=== PATIENT | female | born 1965 | race Caucasian/White ===

== ENCOUNTER → 2018-11-09 08:53 | Outpatient (CLI) | payer OTHER, SELFPAY ==
[2018-11-09 09:47] LABS: Alanine Aminotransferase 15 IU/L (9-52); Albumin Globulin Ratio 1.4 (1.0-2.8); Alkaline Phosphatase 91 U/L (38-126); Aspartate Aminotransferase 12 IU/L (14-36); Blood Urea Nitrogen 12 mg/dL (7-17); Calcium 8.7 mg/dL (8.4-10.2); Carbon Dioxide 25 mmol/L (22-32); Chloride 101 mmol/L (98-107); Cholesterol 120 mg/dL (140-199); Estimated Glomerular Filt Rate > 60.0 mL/min (>60); Globulin 2.8 g/dL (1.7-4.1); Glucose 126 mg/dL (70-100); HDL Cholesterol 45 mg/dL (40-60); HEMOLYSIS < 15 (0-50); LDL Cholesterol Calculated 56 mg/dL (<100); Potassium 3.9 mmol/L (3.4-5.1); Sodium 136 mmol/L (137-145); Total Protein 6.8 g/dL (6.3-8.2); Triglycerides 93 mg/dL (35-150)
[2018-11-09 10:31] LABS: Add Manual Diff / Slide Review NO; Basophils Absolute Auto 0 /uL (0-100); Basophils Percent Auto 0.3 % (0-2); Eosinophils Absolute Auto 100 /uL (0-450); Eosinophils Percent Auto 0.7 % (2-4); Hematocrit 33.4 % (36-46); Hemoglobin 10.7 g/dL (12.0-16.0); Lymphocytes Absolute Auto 2500 /uL (1100-4500); Lymphocytes Percent Auto 28.5 % (25-40); Mean Corpuscular HGB Conc 31.9 % (30-36); Mean Corpuscular Hemoglobin 21.7 PG (26-34); Mean Corpuscular Volume 68.1 fL (80-100); Monocytes Absolute Auto 600 /uL (0-900); Monocytes Percent Auto 7.4 % (3-14); Neutrophils Absolute Auto 5500 /uL (1500-7000); Neutrophils Percent Auto 63.1 % (50-75); Platelet Count 250 X10^3/uL (150-400); Red Blood Cell Count 4.91 X10^6/uL (4.0-5.2); Red Cell Distribution Width 17.9 % (11.6-14.8); White Blood Cell Count 8.7 X10^3/uL (4.5-11.0)
[2018-11-09 11:25] LABS: Thyroid Stimulating Hormone 1.28 uIU/mL (0.47-4.68)
[2018-11-09 15:24] LABS: Microcytosis 2+; Ovalocytes 1+
== END ==
PROVIDERS: Family Provider Family Medicine; PCP Family Medicine; Visit Provider Family Medicine
DX: I10 Essential (primary) hypertension (principal); E11.9 Type 2 diabetes mellitus without complications
CPT/HCPCS: 36415; 80053; 80061; 83036; 84443; 85025

== ENCOUNTER → 2019-02-22 14:30 | Outpatient (CLI) | payer OTHER, SELFPAY | PROVIDERS: Family Provider Family Medicine; PCP Family Medicine; Visit Provider Physician Assistant | DX: N30.01 Acute cystitis with hematuria (principal) | CPT/HCPCS: 87077; 87086; 87186 ==

== ENCOUNTER → 2019-03-15 08:12 | Outpatient (CLI) | payer OTHER, SELFPAY | PROVIDERS: Family Provider Family Medicine; PCP Family Medicine; Visit Provider Family Medicine | DX: E11.9 Type 2 diabetes mellitus without complications (principal); R73.09 Other abnormal glucose | CPT/HCPCS: 83036 ==

== ENCOUNTER → 2020-02-23 09:40 | Outpatient (CLI) | payer OTHER, SELFPAY ==
[2020-02-23 10:20] LABS: Add Manual Diff / Slide Review NO; Basophils Absolute Auto 0 /uL (0-100); Basophils Percent Auto 0.6 % (0-2); Eosinophils Absolute Auto 100 /uL (0-450); Hematocrit 33.1 % (36-46); Hemoglobin 10.5 g/dL (12.0-16.0); Lymphocytes Absolute Auto 2900 /uL (1100-4500); Lymphocytes Percent Auto 34.3 % (25-40); Mean Corpuscular HGB Conc 31.7 % (30-36); Mean Corpuscular Hemoglobin 21.2 PG (26-34); Monocytes Absolute Auto 500 /uL (0-900); Monocytes Percent Auto 5.5 % (3-14); Neutrophils Absolute Auto 4900 /uL (1500-7000); Neutrophils Percent Auto 58.6 % (50-75); Platelet Count 251 X10^3/uL (150-400); Red Blood Cell Count 4.93 X10^6/uL (4.0-5.2); Red Cell Distribution Width 18.8 % (11.6-14.8); White Blood Cell Count 8.3 X10^3/uL (4.5-11.0)
[2020-02-23 10:29] LABS: Hemoglobin A1C% w Est Avg Glu 7.8 % (4.0-6.0)
[2020-02-23 10:38] LABS: Anisocytosis 2+; Poikilocytosis 1+
[2020-02-23 10:40] LABS: HEMOLYSIS < 15 (0-50); Iron 57 ug/dL (37-170)
[2020-02-23 10:45] LABS: Alanine Aminotransferase 16 IU/L (<35); Albumin Globulin Ratio 1.3 (1.0-2.8); Alkaline Phosphatase 112 U/L (38-126); Aspartate Aminotransferase 18 IU/L (14-36); BUN Creatinine Ratio 23.3 (6-22); Bilirubin Total 1.1 mg/dL (0.2-1.3); Blood Urea Nitrogen 14 mg/dL (7-17); Calcium 9.4 mg/dL (8.4-10.2); Carbon Dioxide 29 mmol/L (22-32); Chloride 103 mmol/L (98-107); Cholesterol 130 mg/dL (140-199); Estimated Glomerular Filt Rate > 60.0 mL/min (>60); Glucose 140 mg/dL (70-100); HDL Cholesterol 54 mg/dL (40-60); HEMOLYSIS < 15 (0-50); LDL Cholesterol Calculated 56 mg/dL (<100); Potassium 4.3 mmol/L (3.4-5.1); Sodium 137 mmol/L (137-145); Triglycerides 100 mg/dL (35-150)
[2020-02-23 10:51] LABS: Percent Iron Saturation 17 % (15-50); Total Iron Binding Capacity 342 ug/dL (265-497); Transferrin 266 mg/dL (206-381)
[2020-02-23 11:10] LABS: Thyroid Stimulating Hormone 1.18 uIU/mL (0.47-4.68)
[2020-02-23 11:13] LABS: Ferritin 17 ng/mL (11-264)
== END ==
PROVIDERS: Family Provider Family Medicine; PCP Family Medicine; Referring Provider Family Medicine; Visit Provider Family Medicine
DX: E11.9 Type 2 diabetes mellitus without complications (principal); E78.2 Mixed hyperlipidemia; I10 Essential (primary) hypertension
CPT/HCPCS: 36415; 80053; 80061; 82728; 83036; 83540; 83550; 84443; 85025

== ENCOUNTER → 2020-03-06 11:09 | Outpatient (CLI) | payer OTHER, SELFPAY ==
--- NOTE | 2020-03-06 | DI.MG.S_ITS ---
BILATERAL DIGITAL SCREENING MAMMOGRAM 3D/2D WITH CAD: 03/06/2020 CLINICAL: Routine screening. Comparison is made to exams dated: 02/15/2016 mammogram, 01/26/2015 mammogram, and 06/23/2013 mammogram - [facility]. The tissue of both breasts is predominantly fatty. Current study was also evaluated with a Computer Aided Detection (CAD) system. No significant masses, calcifications, or other findings are seen in either breast. There has been no significant interval change. IMPRESSION: NEGATIVE There is no mammographic evidence of malignancy. A 1 year screening mammogram is recommended. This exam was interpreted at Station ID: [id number]. NOTE: For mammograms, a report in lay terms will be sent to the patient. Approximately 15% of breast malignancies will not be visualized mammographically. In the management of a palpable breast mass, a negative mammogram must not discourage biopsy of a clinically suspicious lesion. Electronically Signed By: Shane almanza/sen:03/08/2020 08:10:00 letter sent: Normal Exam ACR BI-RADS Category 1: Negative [id number]
== END ==
PROVIDERS: Family Provider Family Medicine; PCP Family Medicine; Referring Provider Family Medicine; Visit Provider Family Medicine
DX: Z12.31 Encounter for screening mammogram for malignant neoplasm of breast (principal)
CPT/HCPCS: 77063; 77067

== ENCOUNTER → 2020-03-22 08:56 | Outpatient (CLI) | payer OTHER, SELFPAY ==
[2020-03-24 06:09] LABS: COVID19 Sendout Not Detected (Not Detect)
== END ==
PROVIDERS: Family Provider Family Medicine; PCP Family Medicine; Visit Provider Physician Assistant
DX: Z11.59 Encounter for screening for other viral diseases (principal)
CPT/HCPCS: 87635

== ENCOUNTER 2020-03-25 09:30 | Day surgery (SDC) | payer OTHER, SELFPAY ==
[2020-03-25] VITALS (7 sets, daily range): BP systolic 102–139; BP diastolic 68–91; PULSE 82–106; RESP 12–20; TEMP 36.1–37.2; O2SAT 93–98; BMI 39.6
--- NOTE | 2020-03-25 | PATH_ITS ---
[facility] Accession Number: [id number] . 01 Material submitted: . PART A: colon - POLYP @ 60CM PART B: colon - POLYP 40CM . 01 Clinical history: . SDC . 02 Diagnosis: A. Colon, Polyp At 60 CM, Biopsy: Tubular adenoma. . B. Colon, Polyp At 40 CM, Biopsy: Tubular adenoma. [facility] 03/30/2020 1335 Local . 02 Electronically signed: . Shireen Russell MD, Pathologist NPI- [id number] . 01 Gross description: . A. Specimen A is received in formalin, labeled polyp at 60 and consists of four hernandez fragments of soft tissue, measuring 1.0 x 0.6 x 0.3 cm in aggregate. The specimen is entirely submitted in cassette A1. B. Specimen B is received in formalin, labeled polyp at 40 cm and consists of multiple hernandez fragments of soft tissue, measuring 2.0 x 1.2 x 0.3 cm in aggregate. The specimen is filtered and entirely submitted in cassette B1. ([id number]) . /[facility] 03/26/2020 1707 Local . 02 Pathologist provided ICD-10: D12.6 . 02 CPT . 061408, 061720 Performed at: 01 [facility] [address], [place], [place] [id number] MD Lonnie Sevilla MD Phone: [phone] Performed at: 02 [facility] [address] [place], [place] [id number] MD Shireen Russell MD Phone: [phone]
[2020-03-25] MEDS: LACTATED RINGERS 1,000 ML 200 ML IV (10:05)
--- NOTE | 2020-03-25 10:22 | PM.OP.ENDO ---
Operative Date/Time/Diagnoses Date of procedure: 03/25/20 Time of procedure: 10:22 Pre-op diagnosis: Screening exam. History of polyps. Last exam 6 years ago. Post-op diagnosis: same (Sigmoid and ascending colon diverticulosis. Multiple small polyps.) Procedure & Clinicians Study performed: Colonoscopy with cold biopsies Same procedure as scheduled: Yes Indications: Screening Surgeon: Shawn Ambriz Procedure Notes SCOAP/Timeout: Performed Procedure in detail: The patient was placed in the left lateral decubitus position and underwent IV sedation directed by the surgeon consisting of fentanyl and Versed. Digital exam was performed. The scope was inserted and advanced through the rectum into the sigmoid, descending, transverse, and ascending colon. Patient was noted to have diverticulosis in the sigmoid colon and the ascending colon. A small polyp was identified which was biopsied on the way in. It was removed.(ultimately found to be at about 25 cm in the anal verge). I had to place a stiffener and apply pressure in order to reach the cecum. The cecum was reached identified by the ileocecal valve and the appendiceal opening. The ileocecal valve was briefly cannulated. The terminal ileum was normal in appearance. The scope was gradually brought out. Polyps were found at the cecum, 60 cm from the anal verge, and multiple small lesions were identified and placed in the same container between the anal verge and 25 cm. I suspect some of these may be hyperplastic or lymphoid in nature. The scope ultimately was retroflexed in the rectum. The appearance was normal.. The scope was removed and the patient tolerated the procedure well. Prep was very good. Scope withdrawal time: 7 minutes (14.5 total) Sedation minutes: 37 Findings: diverticulosis and polyp (Multiple. All under a cm. ) Specimen(s): other (Polyps) Complications: none Post-procedure Recommendations: Colonscopy in 5 years Follow up: as needed Disposition: PACU
--- NOTE | 2020-03-25 10:45 | PM.PREOP ---
Pre-operative Note COVID-19 COVID-19 status: Negative Result date/Date tested (Pos, Neg/Pending): 03/22/20 Interval Note History & Physical reviewed/Exam performed by Physician: Yes Changes to H&P: No ASA Class (for procedural sedation): III
[2020-03-25] MEDS: fentaNYL 250 MCG/5 ML INJ IV ×4 (10:52→10:58)
[2020-03-25] MEDS: MIDAZOLAM 5 MG/5 ML VIAL IV ×3 (10:52→11:00)
[2020-03-25] MEDS: LIDOCAINE JELLY 2% 5 ML 1 APPLIC TOP (10:58)
--- NOTE | 2020-03-25 11:25 | PM.OP.ENDO ---
Operative Date/Time/Diagnoses Date of procedure: 03/25/20 Time of procedure: 11:25 Pre-op diagnosis: Positive fit test. This is her 1st colonoscopy Post-op diagnosis: same (Two polyps. Diverticulosis.) Procedure & Clinicians Study performed: Colonoscopy with cold biopsy and cold snare polypectomy Same procedure as scheduled: Yes Indications: Screening. Positive fit test. Surgeon: Shawn Ambriz Procedure Notes SCOAP/Timeout: Perform Procedure in detail: The patient was placed in the left lateral decubitus position and underwent IV sedation directed by the surgeon consisting of fentanyl and Versed. Digital exam was unremarkable except for an increased sphincter tone. Lidocaine jelly was applied to her anus.. The scope was inserted and advanced through the rectum into the sigmoid, descending, transverse, and ascending colon. Patient was noted to have diverticulosis.. The cecum was reached identified by the ileocecal valve and the appendiceal opening. The scope was gradually brought out. Polyps were found at 60 and 40 cm from the anal verge. This 60 cm lesion was snared and removed. The base was biopsied to ensure complete removal. The lesion of 40 cm was repeatedly biopsied and And completely removed. Both polyps were under cm in size. The scope ultimately was retroflexed in the rectum. The appearance was normal. The scope was removed and the patient tolerated the procedure well. The prep was very good. Scope withdrawal time: 10min(17 total) Sedation minutes: 31 Findings: diverticulosis and polyp Specimen(s): other (Polyps) Complications: none Post-procedure Recommendations: Colonscopy in 5 years Follow up: as needed Disposition: PACU
== END 2020-03-25 12:14 | disposition home or self-care (01) ==
PROVIDERS: PCP Family Medicine; Referring Provider Family Medicine; Visit Provider Specialist
PROC: 0DJD8ZZ Inspection of Lower Intestinal Tract, Via Natural or Artificial Opening Endoscopic (ICD-10-PCS; CPT 45378; principal; 2020-03-25 10:45)
DX: R19.5 Other fecal abnormalities (principal); E11.9 Type 2 diabetes mellitus without complications; Z79.84 Long term (current) use of oral hypoglycemic drugs; I10 Essential (primary) hypertension; K57.30 Diverticulosis of large intestine without perforation or abscess without bleeding; D12.6 Benign neoplasm of colon, unspecified
CPT/HCPCS: 45385; 99152; 99153; J2250; J3010

== ENCOUNTER → 2020-05-08 12:24 | Outpatient (CLI) | payer OTHER, SELFPAY ==
[2020-05-08 13:24] LABS: Hemoglobin A1C% w Est Avg Glu 6.9 % (4.0-6.0)
== END ==
PROVIDERS: PCP Family Medicine; Referring Provider Family Medicine; Visit Provider Family Medicine
DX: E11.9 Type 2 diabetes mellitus without complications (principal)
CPT/HCPCS: 36415; 83036

== ENCOUNTER → 2020-07-26 07:32 | Outpatient (CLI) | payer OTHER, SELFPAY ==
[2020-07-26 08:51] LABS: Hemoglobin A1C% w Est Avg Glu 7.2 % (4.0-6.0)
== END ==
PROVIDERS: PCP Family Medicine; Referring Provider Student in an Organized Health Care Education/Training Program; Visit Provider Family Medicine
DX: E11.9 Type 2 diabetes mellitus without complications (principal)
CPT/HCPCS: 36415; 83036

== ENCOUNTER → 2020-09-17 19:14 | Outpatient (CLI) | payer OTHER, SELFPAY | PROVIDERS: PCP Student in an Organized Health Care Education/Training Program; Visit Provider Physician Assistant | DX: R30.0 Dysuria (principal) | CPT/HCPCS: 87086 ==

== ENCOUNTER → 2020-09-29 09:59 | Outpatient (CLI) | payer OTHER, SELFPAY ==
[2020-09-29] MEDS: COVID-19 VACC, Ad26(JANSSEN)/PF 0.5 ML IM (10:16)
== END ==
PROVIDERS: PCP Student in an Organized Health Care Education/Training Program; Visit Provider Internal Medicine
DX: Z23 Encounter for immunization (principal)
CPT/HCPCS: 0031A; 91303

== ENCOUNTER 2020-10-23 22:13 | Emergency (ER) | payer OTHER, SELFPAY ==
--- NOTE | 2020-10-23 22:20 | DI.CT.S_ITS ---
PROCEDURE: CT HEAD/BRAIN WO CON INDICATIONS: fall, head injury, aspirin, alcohol TECHNIQUE: Noncontrast 4.5 mm thick angled axial sections acquired from the foramen magnum to the vertex, with coronal and sagittal reformats. For radiation dose reduction, the following was used: automated exposure control, adjustment of mA and/or kV according to patient size. COMPARISON: None. FINDINGS: Image quality: Excellent. CSF spaces: Basal cisterns are patent. No extra-axial fluid collections. The ventricles are symmetric in size and shape. Brain: No intracranial bleeds or masses. There is cerebral volume loss for age, with resultant ventricular and sulcal prominence. There are periventricular and deep white matter chronic small vessel ischemic changes. Skull and face: Calvarium and visualized facial bones appear intact, without suspicious lesions. Left parietal scalp injury. Sinuses: Visualized sinuses and mastoids are clear. IMPRESSION: 1. No acute intracranial abnormality. 2. Left parietal scalp injury. Note: No significant discrepancy in the preliminary report. Dictated by: Ajit Duran M.D. on 10/24/2020 at 7:49 Approved by: Ajit Duran M.D. on 10/24/2020 at 7:52
[2020-10-23 22:22] VITALS: BP 178/81; PULSE 111; RESP 18; TEMP 36.3; O2SAT 97; BMI 38.2
[2020-10-23] MEDS: LIDOCAINE 1% W/EPI 1 ML SUBCUT (22:25)
--- NOTE | 2020-10-23 22:27 | ED_ITS ---
HPI - Head Injury General Chief complaint: Head Injury Stated complaint: fall, hit head on a wall, bleeding Time Seen by Provider: 10/23/20 22:15 Source: patient and family Mode of arrival: Ambulatory Limitations: no limitations History of Present Illness HPI Narrative: 55-year-old female Nonsmoker with history of diabetes and hypertension presents with a fall and scalp laceration. This happened just prior to arrival in patient denies any loss of consciousness, nausea, vomiting, blurred vision or other injury. She is fine well and at her baseline. She does take a baby aspirin and had a few drinks tonight, for this reason she was activated as a modified trauma. She denies any neck or back pain. Today's her wedding night and her new was attempting to carry her across the threshold into their hotel room when he slipped and they fell back. Her tetanus is up-to-date. Complaint: head injury Onset (ago): minute(s) Mechanism of Injury: fall Place: other Location of injury: occipital Severity: mild Radiation: none Other Injuries: none Context: on aspirin Associated symptoms: denies other symptoms Related Data Home Medications Medication Instructions Recorded Confirmed aspirin 81 mg tablet,delayed 81 mg PO DAILY 07/28/20 09/17/20 release Previous Rx's Medication Instructions Recorded atorvastatin 20 mg tablet See Rx Instructions .ROUTE 07/01/20 .COMPLEX #90 tab blood glucose test strips #100 ea 07/28/20 glucose meter #1 ea 07/28/20 lancets #100 ea 07/28/20 lisinopril 10 mg tablet 10 mg PO DAILY #90 tab 07/28/20 metformin 1,000 mg tablet 1,000 mg PO BID #180 tab 07/28/20 metoprolol succinate 50 mg 50 mg PO DAILY #30 tab 08/25/20 tablet,extended release 24 hr Allergies Allergy/AdvReac Type Severity Reaction Status Date / Time ciprofloxacin Allergy Severe HIVES/ Verified 10/23/20 22:22 THROAT SWELLING ampicillin Allergy Intermediate HIVES Verified 10/23/20 22:22 cephalexin Allergy Intermediate HIVES Verified 10/23/20 22:22 doxycycline Allergy Intermediate HIVES Verified 10/23/20 22:22 sulfamethoxazole Allergy Mild RASH Verified 10/23/20 22:22 [From Bactrim] trimethoprim [From Bactrim] Allergy Mild RASH Verified 10/23/20 22:22 Review of Systems Constitutional Constitutional: Denies chills, Denies fatigue, Denies fever(s), Denies frequent falls, Denies lethargy and Denies weakness Eyes Eyes: Denies change in vision, Denies eye discharge, Denies irritation and Denies loss of vision ENT Ears, Nose, Mouth, and Throat: Denies change in voice, Denies dizziness, Denies neck pain, Denies sore throat and Denies throat swelling Cardiovascular Cardiovascular: Denies chest pain, Denies irregular heart rhythm, Denies lightheadedness, Denies palpitations, Denies dyspnea, Denies dyspnea on exertion and Denies orthopnea Respiratory Respiratory: Denies cough, Denies dyspnea, Denies dyspnea on exertion and Denies wheezing Gastrointestinal Gastrointestinal: Denies abdominal pain, Denies change in bowel habits, Denies diarrhea, Denies nausea and Denies vomiting Musculoskeletal Musculoskeletal: Denies neck pain and Denies numbness Integumentary/Breasts Skin/Breast: Denies pruritus, Denies erythema, Denies rash and Reports wounds Neurologic Neurologic: Denies behavioral changes, Denies confusion, Denies dizziness, Denies frequent falls, Denies loss of vision, Denies numbness and Denies weakness Psychiatric Psychiatric: Denies anxiety, Denies behavioral changes, Denies confusion, Denies depression, Denies homicidal ideation and Denies suicidal ideation Endocrine Endocrine: Denies fatigue, Denies flushing and Denies palpitations Hematologic/Lymphatic Hematologic/Lymphatic: Denies easy bruising Allergic/Immunologic Allergic/Immunologic: Denies urticaria, Denies throat swelling and Denies wheezing Patient History Medical History Essential hypertension (02/16/16) Hyperlipidemia associated with type 2 diabetes mellitus Tinea versicolor Type 2 diabetes mellitus without complication (03/02/16) Surgical History History of third molar tooth extraction Status post endometrial ablation Status post hysterectomy (08/03/16) Family History Father Hypertension Diabetes mellitus Grandmother Diabetes mellitus Grandfather Diabetes mellitus Social History marital status: unknown household members: family and friend(s) occupational status: employed Smoking Status: Never smoker alcohol intake: current substance use type: does not use Smoking Status: Never smoker alcohol intake frequency: holidays/special occasions only Substance Use Type: does not use Exam Narrative Exam Narrative: GENERAL: [55] year old patient appears stated age. Well- nourished, well-developed patient, in mild distress. GCS 15 HEAD: 1.5 in laceration on occiput, minimal bleeding common explored in bloodless field, no foreign body, no galea or deep involvement, no evidence of depressed skull fracture EYES: Pupils equal round and reactive. Extraocular motions intact. No scleral icterus. No injection or drainage. ENT: Nose without bleeding, purulent drainage. Throat without erythema, tonsillar hypertrophy or exudate. Airway patent. NECK: Trachea midline. Non tender CARDIOVASCULAR: Regular rate and rhythm without murmurs, gallops, or rubs. RESPIRATORY: Clear to auscultation. Breath sounds equal bilaterally. No wheezes, rales, or rhonchi. GASTROINTESTINAL: Abdomen soft, non-tender, nondistended. EXTREMITIES: No edema or joint tenderness. BACK: Nontender without deformity or crepitance. No flank tenderness. NEURO: AOx3. SKIN: No rash or erythema of visible areas Initial Vital Signs Initial Vital Signs: Vital Signs Temperature 97.4 F L 10/23/20 22:22 Pulse Rate 111 H 10/23/20 22:22 Respiratory Rate 18 10/23/20 22:22 Blood Pressure 178/81 H 10/23/20 22:22 Pulse Oximetry 97 10/23/20 22:22 Procedures Laceration Repair Laceration 1: Site: scalp Size (cm): 4 Description: linear Depth: simple, single layer Local Anesthetic: lidocaine 1% and with epi Amount of anesthesia used (mL): 4 Pre-repair: wound explored and deep structures intact Skin layer closed with: kev Course Orders Ordered: ED Orders 10/23/20 22:20 CT head/brain wo con Stat Discontinued Medications Lidocaine/Epinephrine (Lidocaine 1% W/Epi) 1 ml SUBCUT NOW ONE Stop: 10/23/20 22:21 Last Admin: 10/23/20 22:25 Dose: 1 ml Documented by: CURRY Vital Signs Vital signs: Vital Signs - 8 hr 10/23/20 22:22 Temperature 97.4 F L Pulse Rate 111 H Respiratory Rate 18 Blood Pressure 178/81 H Pulse Oximetry 97 MDM - Head Injury Imaging Data CT scan - head: Attestation: I personally reviewed and interpreted this imaging study as follows: My Impression: No bleed or fracture Radiologist's Impression: NAP Discharge Plan Departure Patient Disposition: Home Clinical Impression: Laceration of occipital scalp Qualifiers: Encounter type: initial encounter Qualified Code(s): S01.01XA - Laceration without foreign body of scalp, initial encounter Instructions: DI for Laceration Repair of the Scalp Activity Restrictions/Additional Instructions: Please keep the wound clean and dry to the best of your ability. Please monitor for signs of infection such as redness to the skin or increasing pain. Have the kev removed by your doctor in about 7 days. If you are unable to get into your doctor, we would be happy to remove the kev in that same timeframe. Prescriptions: No Action metoprolol succinate 50 mg tablet extended release 24 hr 50 mg PO DAILY Qty: 30 RF: 12 metformin 1,000 mg tablet 1,000 mg PO BID Qty: 180 RF: 1 aspirin [Adult Low Dose Aspirin] 81 mg tablet,delayed release (DR/EC) 81 mg PO DAILY RF: 0 lisinopril 10 mg tablet 10 mg PO DAILY Qty: 90 RF: 3 (DME) glucose meter See Rx Instructions .Route .MEDSUPPLY Qty: 1 RF: 0 (DME) blood glucose test strips See Rx Instructions .Route .MEDSUPPLY Qty: 100 RF: 3 (DME) lancets See Rx Instructions .Route .MEDSUPPLY Qty: 100 RF: 3 atorvastatin 20 mg tablet See Rx Instructions .ROUTE .COMPLEX Qty: 90 RF: 3 Referrals: Jacob Almanzar MD [Primary Care Provider] -
== END 2020-10-23 22:44 | disposition home or self-care (01) ==
PROVIDERS: Emergency Provider Emergency Medicine; PCP Student in an Organized Health Care Education/Training Program
DX: S01.01XA Laceration without foreign body of scalp, initial encounter (principal); W19.XXXA Unspecified fall, initial encounter
CPT/HCPCS: 12002; 70450; 99283

== ENCOUNTER → 2020-10-28 09:32 | Outpatient (CLI) | payer OTHER, SELFPAY ==
[2020-10-28 10:26] LABS: Hemoglobin A1C% w Est Avg Glu 6.5 % (4.0-6.0)
[2020-10-28 10:46] LABS: Creatinine Urine Random 231.1 mg/dL
[2020-10-28 10:50] LABS: Microalbumi Creatinin Ratio Ur 6.9 ug/mg CR (<30); Microalbumin Urine Random 1.6 mg/dL (0-1.6)
[2020-10-28 11:01] LABS: Vitamin D 25 Hydroxy (D3) 21.8 ng/mL (30.0-100.0)
== END ==
PROVIDERS: PCP Student in an Organized Health Care Education/Training Program; Referring Provider Student in an Organized Health Care Education/Training Program; Visit Provider Student in an Organized Health Care Education/Training Program
DX: E11.9 Type 2 diabetes mellitus without complications (principal); E55.9 Vitamin D deficiency, unspecified; Z78.0 Asymptomatic menopausal state; E78.2 Mixed hyperlipidemia; I10 Essential (primary) hypertension
CPT/HCPCS: 36415; 82043; 82306; 82570; 83036

== ENCOUNTER → 2020-12-06 11:54 | Outpatient (CLI) | payer OTHER, SELFPAY ==
[2020-12-06 13:25] LABS: COVID19 -Nasal RAPID Negative (Negative)
== END ==
PROVIDERS: PCP Student in an Organized Health Care Education/Training Program; Visit Provider Student in an Organized Health Care Education/Training Program
DX: J34.89 Other specified disorders of nose and nasal sinuses (principal); R05 Cough; R51.9 Headache, unspecified; Z20.822 Contact with and (suspected) exposure to COVID-19
CPT/HCPCS: 87635

== ENCOUNTER → 2020-12-08 10:46 | Outpatient (CLI) | payer OTHER, SELFPAY ==
[2020-12-08 11:52] LABS: COVID19 -Nasal RAPID Negative (Negative)
== END ==
PROVIDERS: PCP Student in an Organized Health Care Education/Training Program; Visit Provider Physician Assistant
DX: Z20.822 Contact with and (suspected) exposure to COVID-19 (principal)
CPT/HCPCS: 87635

== ENCOUNTER → 2021-01-27 07:09 | Outpatient (CLI) | payer OTHER, SELFPAY ==
[2021-01-27 09:00] LABS: Hemoglobin A1C% w Est Avg Glu 6.8 % (4.0-6.0)
== END ==
PROVIDERS: PCP Student in an Organized Health Care Education/Training Program; Referring Provider Student in an Organized Health Care Education/Training Program; Visit Provider Student in an Organized Health Care Education/Training Program
DX: E11.9 Type 2 diabetes mellitus without complications (principal)
CPT/HCPCS: 36415; 83036

== ENCOUNTER 2021-04-03 14:13 | Emergency (ER) | payer OTHER, SELFPAY ==
[2021-04-03] VITALS (8 sets, daily range): BP systolic 154–189; BP diastolic 82–98; PULSE 85–99; RESP 14–20; TEMP 36.6; O2SAT 98–100; BMI 35.8
--- NOTE | 2021-04-03 14:52 | DI.RAD.S_ITS ---
PROCEDURE: XR CHEST 1V INDICATIONS: chest pain TECHNIQUE: One view of the chest was acquired. COMPARISON: None. FINDINGS: Surgical changes and devices: None. Lungs and pleura: Lungs are clear. No pleural effusions or pneumothorax. Mediastinum: Mediastinal contours appear normal. Heart size is prominent. Bones and chest wall: No suspicious bony lesions. Overlying soft tissues appear unremarkable. IMPRESSION: No acute cardiopulmonary abnormality. Heart size appears prominent. Dictated by: Karsten Saldaña M.D. on 04/03/2021 at 14:59 Approved by: Karsten Saldaña M.D. on 04/03/2021 at 15:00
--- NOTE | 2021-04-03 15:42 | ED_ITS ---
HPI - General Adult General Chief complaint: Dizziness Stated complaint: Vertigo, shaking, High BP Time Seen by Provider: 04/03/21 15:17 Source: patient Mode of arrival: Family Vehicle Limitations: no limitations History of Present Illness HPI narrative: 55-year-old female who is here for evaluation of less than 24 hours of occasional episodes of feeling lightheaded and shaking and having a vertigo sensation. Also has a elevated blood pressure. She does have a history of high blood pressure. She has been taking her medications. She states that her blood pressure is normally has a systolic in the 120s. At the time of my evaluation she states that her symptoms have improved but she still was feeling somewhat lightheaded. No ringing in her ears. No chest pain. No shortness of breath. No nausea vomiting. No lower extremity swelling. No numbness or tingling in her upper and lower extremities. Has not tried anything for the symptoms prior to arrival. Related Data Home Medications Medication Instructions Recorded Confirmed aspirin 81 mg tablet,delayed 81 mg PO DAILY 07/28/20 01/27/21 release (Adult Low Dose Aspirin) Previous Rx's Medication Instructions Recorded atorvastatin 20 mg tablet See Rx Instructions .ROUTE 07/01/20 .COMPLEX #90 tab blood glucose test strips #100 ea 07/28/20 glucose meter #1 ea 07/28/20 lancets #100 ea 07/28/20 lisinopril 10 mg tablet 10 mg PO DAILY #90 tab 07/28/20 metoprolol succinate 50 mg 50 mg PO DAILY #30 tab 08/25/20 tablet,extended release 24 hr metformin 1,000 mg tablet 1,000 mg PO BID #180 tab 01/31/21 meclizine 25 mg tablet 25 mg PO TID PRN #12 tab 04/03/21 Allergies Allergy/AdvReac Type Severity Reaction Status Date / Time ciprofloxacin Allergy Severe HIVES/ Verified 01/27/21 10:58 THROAT SWELLING ampicillin Allergy Intermediate HIVES Verified 01/27/21 10:58 cephalexin Allergy Intermediate HIVES Verified 01/27/21 10:58 doxycycline Allergy Intermediate HIVES Verified 01/27/21 10:58 sulfamethoxazole Allergy Mild RASH Verified 01/27/21 10:58 [From Bactrim] trimethoprim [From Bactrim] Allergy Mild RASH Verified 01/27/21 10:58 Review of Systems Constitutional Constitutional: Reports system reviewed and no additional complaints, except as documented Eyes Eyes: Reports system reviewed and no additional complaints, except as documented ENT Ears, Nose, Mouth, and Throat: Reports system reviewed and no additional complaints, except as documented Cardiovascular Cardiovascular: Reports system reviewed and no additional complaints, except as documented Respiratory Respiratory: Reports system reviewed and no additional complaints, except as documented Gastrointestinal Gastrointestinal: Reports system reviewed and no additional complaints, except as documented Musculoskeletal Musculoskeletal: Reports system reviewed and no additional complaints, except as documented Integumentary/Breasts Skin/Breast: Reports system reviewed and no additional complaints, except as documented Neurologic Neurologic: Reports as per HPI Psychiatric Psychiatric: Reports system reviewed and no additional complaints, except as documented Hematologic/Lymphatic On Anticoagulants: No Allergic/Immunologic Allergic/Immunologic: Reports system reviewed and no additional complaints, except as documented Patient History Medical History Essential hypertension (02/16/16) Hyperlipidemia associated with type 2 diabetes mellitus Myopia, bilateral Tinea versicolor Type 2 diabetes mellitus without complication (03/02/16) Surgical History History of third molar tooth extraction Status post endometrial ablation Status post hysterectomy (08/03/16) Family History Father Hypertension Diabetes mellitus Grandmother Diabetes mellitus Grandfather Diabetes mellitus Social History marital status: unknown household members: family and friend(s) occupational status: employed Smoking Status: Never smoker alcohol intake: current substance use type: does not use Smoking Status: Never smoker alcohol intake frequency: holidays/special occasions only Substance Use Type: does not use Exam Initial Vital Signs Initial Vital Signs: Vital Signs Temperature 97.9 F 04/03/21 14:48 Pulse Rate 99 H 04/03/21 14:48 Respiratory Rate 20 04/03/21 14:48 Blood Pressure 167/82 H 04/03/21 14:48 Pulse Oximetry 100 04/03/21 14:48 Const General: cooperative, healthy appearing, comfortable and well developed HENFL Head: normal to inspection and normocephalic Ears: TM's normal bilaterally Nose: external nose normal Face and sinus: normal facial exam Eyes Pupils: PERRL EOM: EOM intact bilaterally Resp Effort & Inspection: normal respiratory effort Auscultation: clear to auscultation bilaterally Cardio Rate: regular rate Rhythm: regular rhythm Skin General: no rashes or lesions noted Neuro General: patient alert, patient awake, patient oriented x3 and moves all extremities Cranial Nerves: CN's II-XI intact bilaterally Cognition: normal cognition Speech: speech normal Gait: normal gait Motor: muscle tone normal throughout Sensory Exam: no sensory deficits noted Extrem General: normal to inspection and capillary refill normal Psych Appearance: grossly normal and well kempt Course Orders Ordered: ED Orders 04/03/21 14:52 XR chest 1V Stat EKG-12 Lead Stat 04/03/21 15:36 Complete Blood Count AUTO DIFF Stat Comprehensive Metabolic Panel Stat Lipase Stat Troponin & CK Cardiac Panel Stat 04/03/21 16:51 COVID19 -Nasal swab/Pre-Proc Stat Vital Signs Vital signs: Vital Signs - 8 hr 04/03/21 14:48 04/03/21 15:38 04/03/21 16:00 Temperature 97.9 F Pulse Rate 99 H 98 H 88 Respiratory Rate 20 16 16 Blood Pressure 167/82 H 189/84 H Pulse Oximetry 100 99 99 04/03/21 16:16 04/03/21 16:30 04/03/21 17:00 Temperature Pulse Rate 86 94 H 88 Respiratory Rate Blood Pressure 166/85 H 166/87 H 160/87 H Pulse Oximetry 100 99 98 04/03/21 17:30 04/03/21 18:04 Temperature Pulse Rate 85 97 H Respiratory Rate 14 Blood Pressure 174/82 H 154/98 H Pulse Oximetry 98 99 Medical Decision Making Lab Data Lab results reviewed: Yes I reviewed the patient's lab results. Result diagrams: 04/03/21 15:36 04/03/21 15:36 Labs: Lab Results 04/03/21 04/03/21 04/03/21 Range/Units 15:36 15:36 16:51 WBC 10.6 (4.5-11.0) X10^3/uL RBC 4.88 (4.0-5.2) X10^6/uL Hgb 10.0 L (12.0-16.0) g/dL Hct 32.1 L (36-46) % MCV 65.8 L (80-100) fL MCH 20.5 L (26-34) PG MCHC 31.2 (30-36) % RDW 19.1 H (11.6-14.8) % Plt Count 341 (150-400) X10^3/uL Neut % (Auto) 74.4 (50-75) % Lymph % (Auto) 20.3 L (25-40) % [place] % (Auto) 4.5 (3-14) % Eos % (Auto) 0.3 L (2-4) % Baso % (Auto) 0.5 (0-2) % Neut # (Auto) 7900 H (5691-7369) /uL Lymph # (Auto) 2100 (6931-7700) /uL [place] # (Auto) 500 (0-900) /uL Eos # (Auto) 0 (0-450) /uL Baso # (Auto) 100 (0-100) /uL RBC Morphology See below Poikilocytosis 1+ H Anisocytosis 1+ H Microcytosis 1+ H Sodium 139 (137-145) mmol/L Potassium 3.8 (3.4-5.1) mmol/L Chloride 105 (98-107) mmol/L Carbon Dioxide 26 (22-32) mmol/L BUN 16 (7-17) mg/dL Creatinine 0.56 (0.52-1.04) mg/dL Estimated GFR > 60.0 (>60) mL/min BUN/Creatinine Ratio 28.6 H (6-22) Glucose 120 H (70-100) mg/dL Calcium 9.5 (8.4-10.2) mg/dL Total Bilirubin 0.5 (0.2-1.3) mg/dL AST 20 (14-36) IU/L ALT 19 (<35) IU/L Alkaline Phosphatase 99 (38-126) U/L Total Creatine Kinase 69 (30-135) U/L CK-MB (CK-2) TNP CK-MB (CK-2) Rel Index TNP Troponin I < 0.012 (0.01-0.034) ng/mL Total Protein 6.9 (6.3-8.2) g/dL Albumin 4.2 (3.5-5.0) g/dL Globulin 2.7 (1.7-4.1) g/dL Albumin/Globulin Ratio 1.6 (1.0-2.8) Lipase 58 (23-300) U/L SARS-CoV-2 (PCR) Negative (Negative) Point of Care Testing Test Results Negative Glucose POC 122 Urine Dip Bedside Urine Glucose Negative Bedside Urine Bilirubin - Negative Bedside Urine Ketone - Negative Urine Specific [place] 1.010 Bedside Urine Occult Blood +/- Bedside Urine pH 6.0 Bedside Urine Protein - Negative Bedside Urine Urobilinogen - Negative Bedside Urine Nitrite - Negative Bedside Urine Leukocytes - Negative Esterase Point of care testing: Point of Care Testing Test Results Negative Glucose POC 122 Urine Dip Bedside Urine Glucose Negative Bedside Urine Bilirubin - Negative Bedside Urine Ketone - Negative Urine Specific [place] 1.010 Bedside Urine Occult Blood +/- Bedside Urine pH 6.0 Bedside Urine Protein - Negative Bedside Urine Urobilinogen - Negative Bedside Urine Nitrite - Negative Bedside Urine Leukocytes - Negative Esterase Imaging Data Chest x-ray: Radiologist's Impression: [address] [address] XRay Report Signed Patient: Melody Cespedes MR#: [id number] : 1965 Acct:[id number] Age/Sex: 55 / F Date of Service: 04/03/21 Loc: ED Accession Number: [id number] ?? Procedure: XR chest 1V Ordering Provider: Jatinder Cervantes D.O. PROCEDURE:? XR CHEST 1V ? INDICATIONS:? chest pain ? TECHNIQUE:? One view of the chest was acquired.? ? COMPARISON:? None. ? FINDINGS:? ? Surgical changes and devices:? None.? ? Lungs and pleura:? Lungs are clear.? No pleural effusions or pneumothorax.? ? Mediastinum:? Mediastinal contours appear normal.? Heart size is prominent.? ? Bones and chest wall:? No suspicious bony lesions.? Overlying soft tissues appear unremarkable.? ? IMPRESSION:? No acute cardiopulmonary abnormality. Heart size appears prominent. ? ? Dictated by: Karsten Saldaña M.D. on 04/03/2021 at 14:59 ? ? Approved by: Karsten Saldaña M.D. on 04/03/2021 at 15:00? ECG Data Attestation: I personally reviewed and interpreted this ECG as follows: Interpretation: Sinus rhythm Ventricular rate 82 Left axis deviation LVH Normal QRS Normal QTC No ST T wave changes MDM Narrative Medical decision making narrative: Patient's labs are unremarkable. EKG is unremarkable. Chest x-ray is unremarkable. COVID is negative. Neurologic exam is unremarkable. Patient ambulated to the bathroom. Low suspicion for CVA. Low suspicion for TIA. Low suspicion for ACS. No further workup needed in the emergency department. I feel that we can hold on any further radiologic studies for now based on her exam. We will treat her symptoms. She was given return precautions. She expressed understanding and agreement. Discharge Plan Departure Patient Disposition: Home Clinical Impression: Vertigo Instructions: DI for Vertigo Activity Restrictions/Additional Instructions: Continue to take all of your medications as directed. Recommend that you start a antihistamine such as Claritin or Eri or Zyrtec. Contact your primary doctor for follow-up. Return to the emergency department for any new or wor sening symptoms Prescriptions: New meclizine 25 mg tablet 25 mg PO TID PRN (Reason: dizziness) Qty: 12 RF: 0 No Action metoprolol succinate 50 mg tablet extended release 24 hr 50 mg PO DAILY Qty: 30 RF: 12 metformin 1,000 mg tablet 1,000 mg PO BID Qty: 180 RF: 1 aspirin [Adult Low Dose Aspirin] 81 mg tablet,delayed release (DR/EC) 81 mg PO DAILY RF: 0 lisinopril 10 mg tablet 10 mg PO DAILY Qty: 90 RF: 3 (DME) glucose meter See Rx Instructions .Route .MEDSUPPLY Qty: 1 RF: 0 (DME) blood glucose test strips See Rx Instructions .Route .MEDSUPPLY Qty: 100 RF: 3 (DME) lancets See Rx Instructions .Route .MEDSUPPLY Qty: 100 RF: 3 atorvastatin 20 mg tablet See Rx Instructions .ROUTE .COMPLEX Qty: 90 RF: 3 Referrals: Jacob Almanzar MD [Primary Care Provider] -
[2021-04-03 16:02] LABS: Add Manual Diff / Slide Review NO; Basophils Absolute Auto 100 /uL (0-100); Basophils Percent Auto 0.5 % (0-2); Eosinophils Absolute Auto 0 /uL (0-450); Eosinophils Percent Auto 0.3 % (2-4); Hematocrit 32.1 % (36-46); Lymphocytes Absolute Auto 2100 /uL (1100-4500); Lymphocytes Percent Auto 20.3 % (25-40); Mean Corpuscular HGB Conc 31.2 % (30-36); Mean Corpuscular Hemoglobin 20.5 PG (26-34); Mean Corpuscular Volume 65.8 fL (80-100); Monocytes Absolute Auto 500 /uL (0-900); Monocytes Percent Auto 4.5 % (3-14); Neutrophils Absolute Auto 7900 /uL (1500-7000); Neutrophils Percent Auto 74.4 % (50-75); Platelet Count 341 X10^3/uL (150-400); Red Blood Cell Count 4.88 X10^6/uL (4.0-5.2); Red Cell Distribution Width 19.1 % (11.6-14.8); White Blood Cell Count 10.6 X10^3/uL (4.5-11.0)
[2021-04-03 16:10] LABS: Alanine Aminotransferase 19 IU/L (<35); Albumin 4.2 g/dL (3.5-5.0); Albumin Globulin Ratio 1.6 (1.0-2.8); Alkaline Phosphatase 99 U/L (38-126); Aspartate Aminotransferase 20 IU/L (14-36); BUN Creatinine Ratio 28.6 (6-22); Bilirubin Total 0.5 mg/dL (0.2-1.3); Blood Urea Nitrogen 16 mg/dL (7-17); Calcium 9.5 mg/dL (8.4-10.2); Carbon Dioxide 26 mmol/L (22-32); Chloride 105 mmol/L (98-107); Creatine Kinase 69 U/L (30-135); Estimated Glomerular Filt Rate > 60.0 mL/min (>60); Globulin 2.7 g/dL (1.7-4.1); Glucose 120 mg/dL (70-100); HEMOLYSIS < 15 (0-50); Lipase 58 U/L (23-300); Potassium 3.8 mmol/L (3.4-5.1); Sodium 139 mmol/L (137-145); Total Protein 6.9 g/dL (6.3-8.2)
[2021-04-03 16:22] LABS: Troponin I < 0.012 ng/mL (0.01-0.034)
[2021-04-03 16:30] LABS: Anisocytosis 1+; Microcytosis 1+; Poikilocytosis 1+
[2021-04-03 17:11] LABS: COVID19 -Nasal RAPID Negative (Negative)
== END 2021-04-03 18:06 | disposition home or self-care (01) ==
PROVIDERS: Emergency Provider Emergency Medicine; PCP Student in an Organized Health Care Education/Training Program
DX: R42 Dizziness and giddiness (principal); I10 Essential (primary) hypertension; R07.9 Chest pain, unspecified; Z20.822 Contact with and (suspected) exposure to COVID-19
CPT/HCPCS: 36415; 71045; 80053; 81003; 81025; 82550; 82962; 83690; 84484; 85025; 87635; 93005; 99284; C9803

== ENCOUNTER → 2021-08-09 10:52 | Outpatient (CLI) | payer OTHER, SELFPAY ==
[2021-08-09 13:47] LABS: COVID19 -Nasal RAPID Negative (Negative)
== END ==
PROVIDERS: PCP Student in an Organized Health Care Education/Training Program; Referring Provider Physician Assistant; Visit Provider Physician Assistant
DX: Z20.822 Contact with and (suspected) exposure to COVID-19 (principal); J02.9 Acute pharyngitis, unspecified; R09.89 Other specified symptoms and signs involving the circulatory and respiratory systems; R51.9 Headache, unspecified
CPT/HCPCS: 87635

== ENCOUNTER → 2021-09-01 17:07 | Outpatient (CLI) | payer OTHER, SELFPAY ==
[2021-09-01 17:35] LABS: Hematocrit 31.1 % (36-46); Hemoglobin 9.7 g/dL (12.0-16.0); Mean Corpuscular HGB Conc 31.3 % (30-36); Mean Corpuscular Hemoglobin 20.1 PG (26-34); Mean Corpuscular Volume 64.1 fL (80-100); Platelet Count 330 X10^3/uL (150-400); Red Blood Cell Count 4.86 X10^6/uL (4.0-5.2); Red Cell Distribution Width 19.2 % (11.6-14.8); White Blood Cell Count 10.1 X10^3/uL (4.5-11.0)
[2021-09-01 17:36] LABS: Reticulocyte Count, Percent 1.1 % (1.1-2.6)
[2021-09-01 17:38] LABS: Hemoglobin A1C% w Est Avg Glu 6.5 % (4.0-6.0)
[2021-09-01 18:02] LABS: HEMOLYSIS < 15 (0-50); Iron 12 ug/dL (37-170)
[2021-09-01 18:04] LABS: BUN Creatinine Ratio 27.9 (6-22); Blood Urea Nitrogen 19 mg/dL (7-17); Calcium 9.4 mg/dL (8.4-10.2); Carbon Dioxide 30 mmol/L (22-32); Chloride 104 mmol/L (98-107); Estimated Glomerular Filt Rate > 60.0 mL/min (>60); Glucose 110 mg/dL (70-100); HEMOLYSIS < 15 (0-50); Sodium 137 mmol/L (137-145)
[2021-09-01 18:10] LABS: Microalbumi Creatinin Ratio Ur 8.3 ug/mg CR (<30)
[2021-09-01 18:13] LABS: Percent Iron Saturation 3 % (15-50); Total Iron Binding Capacity 377 ug/dL (265-497); Transferrin 307 mg/dL (206-381)
[2021-09-01 18:22] LABS: Vitamin D 25 Hydroxy (D3) 30.2 ng/mL (30.0-100.0)
[2021-09-01 18:39] LABS: Ferritin 10 ng/mL (11-264)
== END ==
PROVIDERS: PCP Student in an Organized Health Care Education/Training Program; Referring Provider Student in an Organized Health Care Education/Training Program; Visit Provider Student in an Organized Health Care Education/Training Program
DX: E11.69 Type 2 diabetes mellitus with other specified complication (principal); E55.9 Vitamin D deficiency, unspecified; E78.5 Hyperlipidemia, unspecified; I10 Essential (primary) hypertension; D50.9 Iron deficiency anemia, unspecified
CPT/HCPCS: 36415; 80048; 82043; 82306; 82570; 82728; 83036; 83540; 83550; 85027; 85045

== ENCOUNTER → 2021-11-17 15:09 | Outpatient (CLI) | payer OTHER, SELFPAY ==
[2021-11-17 16:30] LABS: Hematocrit 31.6 % (36-46); Mean Corpuscular HGB Conc 31.7 % (30-36); Mean Corpuscular Hemoglobin 20.3 PG (26-34); Platelet Count 341 X10^3/uL (150-400); Red Blood Cell Count 4.94 X10^6/uL (4.0-5.2); Red Cell Distribution Width 18.9 % (11.6-14.8); White Blood Cell Count 9.7 X10^3/uL (4.5-11.0)
[2021-11-17 16:35] LABS: HEMOLYSIS < 15 (0-50); Iron 25 ug/dL (37-170)
[2021-11-17 16:48] LABS: Percent Iron Saturation 7 % (15-50); Total Iron Binding Capacity 352 ug/dL (265-497); Transferrin 270 mg/dL (206-381)
[2021-11-17 16:51] LABS: Reticulocyte Count, Percent 1.2 % (1.1-2.6)
== END ==
PROVIDERS: PCP Student in an Organized Health Care Education/Training Program; Referring Provider Student in an Organized Health Care Education/Training Program; Visit Provider Student in an Organized Health Care Education/Training Program
DX: D50.9 Iron deficiency anemia, unspecified (principal)
CPT/HCPCS: 36415; 83540; 83550; 85027; 85045

== ENCOUNTER → 2022-01-25 09:17 | Outpatient (CLI) | payer OTHER, SELFPAY ==
--- NOTE | 2022-01-25 09:19 | DI.MG.S_ITS ---
BILATERAL DIGITAL SCREENING MAMMOGRAM 3D/2D WITH CAD: 01/25/2022 CLINICAL: Routine screening. Comparison is made to exams dated: 03/06/2020 mammogram and 02/15/2016 mammogram - [facility]. The tissue of both breasts is predominantly fatty. Current study was also evaluated with a Computer Aided Detection (CAD) system. No significant masses, calcifications, or other findings are seen in either breast. There has been no significant interval change. IMPRESSION: NEGATIVE There is no mammographic evidence of malignancy. A 1 year screening mammogram is recommended. Based on the Tyrer Cuzick model (a risk assessment model) the patient's lifetime risk is 4.1% and her 10 year risk is 1.2%. According to the ACR, ACS, and NCCN guidelines, an annual breast MRI exam along with mammogram is recommended if the patient's lifetime risk is 20% or greater. This exam was interpreted at Station ID: [id number]. NOTE: For mammograms, a report in lay terms will be sent to the patient. Approximately 15% of breast malignancies will not be visualized mammographically. In the management of a palpable breast mass, a negative mammogram must not discourage biopsy of a clinically suspicious lesion. Electronically Signed By: Lauri cagle/sen:01/25/2022 12:34:58 letter sent: Normal Exam ACR BI-RADS Category 1: Negative 3341F
== END ==
PROVIDERS: PCP Student in an Organized Health Care Education/Training Program; Referring Provider Student in an Organized Health Care Education/Training Program; Visit Provider Student in an Organized Health Care Education/Training Program
DX: Z12.31 Encounter for screening mammogram for malignant neoplasm of breast (principal)
CPT/HCPCS: 77063; 77067

== ENCOUNTER → 2022-04-11 12:40 | Outpatient (CLI) | payer OTHER, SELFPAY | PROVIDERS: PCP Student in an Organized Health Care Education/Training Program; Visit Provider Student in an Organized Health Care Education/Training Program | DX: R30.0 Dysuria (principal) | CPT/HCPCS: 87086 ==

== ENCOUNTER 2022-04-16 19:52 | Emergency (ER) | payer OTHER, SELFPAY ==
[2022-04-16] VITALS (9 sets, daily range): BP systolic 113–158; BP diastolic 76–80; PULSE 84–114; RESP 16; TEMP 37.3; O2SAT 96–99; BMI 37.6
[2022-04-16] MEDS: SODIUM CHLORIDE 0.9% 1,000 ML 1000 ML IV ×2 (20:46→22:32)
[2022-04-16] MEDS: ONDANSETRON 4 MG/2 ML INJ IV (20:46)
[2022-04-16 20:49] LABS: Add Manual Diff / Slide Review NO; Basophils Absolute Auto 100 /uL (0-100); Eosinophils Absolute Auto 100 /uL (0-450); Eosinophils Percent Auto 0.8 % (2-4); Hematocrit 30.3 % (36-46); Hemoglobin 9.8 g/dL (12.0-16.0); Lymphocytes Absolute Auto 4400 /uL (1100-4500); Lymphocytes Percent Auto 34.6 % (25-40); Mean Corpuscular HGB Conc 32.2 % (30-36); Mean Corpuscular Hemoglobin 20.4 PG (26-34); Mean Corpuscular Volume 63.3 fL (80-100); Monocytes Absolute Auto 800 /uL (0-900); Monocytes Percent Auto 6.5 % (3-14); Neutrophils Absolute Auto 7200 /uL (1500-7000); Neutrophils Percent Auto 57.1 % (50-75); Platelet Count 488 X10^3/uL (150-400); Red Blood Cell Count 4.79 X10^6/uL (4.0-5.2); Red Cell Distribution Width 18.4 % (11.6-14.8); White Blood Cell Count 12.6 X10^3/uL (4.5-11.0)
[2022-04-16 20:53] LABS: Prothrombin Time 11.4 SECONDS (10.1-12.7)
[2022-04-16 20:55] LABS: PTT Partial Thromboplastin Tim 28 SECONDS (26-36)
[2022-04-16 20:57] LABS: Alanine Aminotransferase 20 IU/L (<35); Albumin Globulin Ratio 1.2 (1.0-2.8); Alkaline Phosphatase 103 U/L (38-126); Aspartate Aminotransferase 17 IU/L (14-36); Bilirubin Total 0.5 mg/dL (0.2-1.3); Blood Urea Nitrogen 35 mg/dL (7-17); Calcium 9.5 mg/dL (8.4-10.2); Carbon Dioxide 29 mmol/L (22-32); Chloride 98 mmol/L (98-107); Estimated Glomerular Filt Rate > 60 mL/min (>60); Globulin 3.4 g/dL (1.7-4.1); Glucose 184 mg/dL (70-100); HEMOLYSIS < 15 (0-50); Lipase 83 U/L (23-300); Potassium 3.7 mmol/L (3.4-5.1); Sodium 138 mmol/L (137-145); Total Protein 7.4 g/dL (6.3-8.2)
[2022-04-16 21:19] LABS: COVID19 -Nasal RAPID Negative (Negative)
[2022-04-16 21:25] LABS: Lactate (Lactic Acid) 2.8 mmol/L (0.7-2.1)
--- NOTE | 2022-04-16 22:19 | DI.CT.S_ITS ---
PROCEDURE: CT KIDNEY URETER BLADDER (KUB) INDICATIONS: abd pain, diarrhea, hematuria TECHNIQUE: Axial sections were acquired from the lung bases to the pubic symphysis. Coronal and sagittal reformats were performed. For radiation dose reduction, the following was used: automated exposure control, adjustment of mA and/or kV according to patient size. COMPARISON: [facility], CT, KIDNEY/ URETER/BLADDER, 10/31/2009, 10:33. FINDINGS: Image quality: Excellent. Lung bases: There is minimal atelectasis. Heart: Heart is normal in size. URINARY: Right Kidney and Ureter: No stones or hydronephrosis. No hydroureter. Left Kidney and Ureter: No stones or hydronephrosis. No hydroureter. Bladder: Normal wall thickness. No stones. ABDOMEN: Liver: Noncontrast evaluation of the liver demonstrates no discrete mass. Gallbladder: Within normal limits without calcified gallstones. Biliary ducts: No biliary ductal dilatation. Pancreas: Unremarkable. Spleen: Normal in size. Adrenal Glands: No adrenal nodules. Stomach and Bowel: Stomach and small bowel loops are normal in caliber and wall thickness. The appendix is normal in appearance. There is colonic diverticulosis with associated diverticular and segmental colonic wall thickening in the sigmoid colon as well as adjacent pericolonic fat stranding and a small amount of free fluid. The findings are consistent with acute diverticulitis. No diverticular abscess or macroscopic free air. Pericolonic fat stranding extends to the bladder dome posteriorly without a discrete fistula identified in the absence of intravenous contrast. Peritoneum: There is a small amount of intraperitoneal free fluid. No free air. Ventral Wall: There are 2 small right paracentral fat-containing periumbilical hernias. Abdominal Nodes: No retroperitoneal or mesenteric adenopathy by size criteria. Vessels: Aorta and inferior vena cava are normal in size. PELVIS: Pelvic Organs: Unremarkable. Pelvic Nodes: No enlarged lymph nodes. Miscellaneous: No inguinal hernias identified. Bones: Visualized osseous structures demonstrate no suspicious focal lesions. IMPRESSION: 1. Acute diverticulitis in the sigmoid colon without diverticular abscess or macroscopic free air. 2. Linear pericolonic fat stranding extends to the bladder dome posteriorly. Although no discrete colovesicular fistula is identified in the absence of intravenous contrast, correlation is recommended with urinalysis. Dictated by: Lonnie Robles M.D. on 04/16/2022 at 23:08 Approved by: Lonnie Robles M.D. on 04/16/2022 at 23:17
[2022-04-16 22:30] LABS: Pregnancy Test Urine Negative (Negative)
[2022-04-16 22:45] LABS: Bacteria Urine Occasional (0-1); Culture Indicated Urine Cult Not Indicated; Hyaline Casts Urine 0-1/LPF; RBC Urine None Seen (0-5/HPF); Squamous Epithelial Cell Urine 1-5 /HPF (0-5/HPF); WBC Urine 0-1/HPF (0-5/HPF)
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
[2022-04-16 23:10] LABS: Reflexed Lactate in 2 Hours Y
[2022-04-16 23:29] LABS: Creatine Kinase 75 U/L (30-135)
[2022-04-17] VITALS: PULSE 77; O2SAT 97
[2022-04-17] MEDS: metroNIDAZOLE 500 MG TABLET PO (00:01)
[2022-04-17 00:12] LABS: Lactate 2HR (Lactic Acid Rflx) 2.2 mmol/L (0.7-2.1)
[2022-04-17] MEDS: ONDANSETRON 4 MG ODT PREPACK 1 BOTTLE MISC (00:58)
[2022-04-17 00:59] VITALS: PULSE 87; O2SAT 100
[2022-04-17 01:00] VITALS: BP 127/67; PULSE 87; O2SAT 97
[2022-04-17 02:02] LABS: Anisocytosis 2+; Microcytosis 2+; Ovalocytes 1+; Platelet Estimate Increased on smear; Schistocytes 1+
== END 2022-04-17 01:06 | disposition home or self-care (01) ==
PROVIDERS: Emergency Provider Emergency Medicine; PCP Student in an Organized Health Care Education/Training Program
DX: K57.92 Diverticulitis of intestine, part unspecified, without perforation or abscess without bleeding (principal); N17.9 Acute kidney failure, unspecified; R11.10 Vomiting, unspecified; R79.89 Other specified abnormal findings of blood chemistry; Z20.822 Contact with and (suspected) exposure to COVID-19
CPT/HCPCS: 36415; 74176; 80053; 81003; 81015; 81025; 82550; 83605; 83690; 85025; 85610; 85730; 87040; 87635; 93005; 96361; 96374; 99284; C9803; J2405

== ENCOUNTER → 2022-05-02 10:23 | Outpatient (CLI) | payer OTHER, SELFPAY ==
[2022-05-02 11:11] LABS: Appearance Urine UA CLEAR; Bilirubin Urine UA NEGATIVE (NEGATIVE); Color Urine UA YELLOW; Glucose Urine UA NEGATIVE (Negative); Ketones Urine UA TRACE (NEGATIVE); Leukocyte Esterase Urine UA 1+ (NEGATIVE); Nitrite Urine UA NEGATIVE (Negative); Occult Blood Urine UA 1+ (Negative); Protein Urine UA TRACE (Negative); Specific Gravity Urine UA 1.015 (1.000-1.035); Urobilinogen Urine UA 0.2 E.U./dL (0.2)
[2022-05-02 11:15] LABS: pH Urine UA 6.5 (4.5-8.0)
[2022-05-02 11:17] LABS: Bacteria Urine None Seen; Culture Indicated Urine Specimen Cultured; RBC Urine 5-10/HPF (0-5/HPF); Squamous Epithelial Cell Urine 5-10 /HPF (0-5/HPF); WBC Urine 5-10/HPF (0-5/HPF)
[2022-05-02 11:49] LABS: Hemoglobin A1C% w Est Avg Glu 6.7 % (4.0-6.0)
[2022-05-02 11:55] LABS: Hematocrit 28.9 % (36-46); Hemoglobin 9.3 g/dL (12.0-16.0); Mean Corpuscular HGB Conc 32.1 % (30-36); Mean Corpuscular Volume 65.6 fL (80-100); Platelet Count 339 X10^3/uL (150-400); Red Cell Distribution Width 21.4 % (11.6-14.8)
[2022-05-02 11:56] LABS: Lactate Dehydrogenase 380 U/L (313-618)
[2022-05-02 12:00] LABS: Reticulocyte Count, Percent 2.1 % (1.1-2.6)
[2022-05-02 12:02] LABS: HEMOLYSIS < 15 (0-50); Iron 28 ug/dL (37-170)
[2022-05-02 12:13] LABS: Percent Iron Saturation 9 % (15-50); Total Iron Binding Capacity 312 ug/dL (265-497); Transferrin 242 mg/dL (206-381)
[2022-05-02 12:24] LABS: Hypochromasia 1+; Microcytosis 2+
[2022-05-02 12:25] LABS: Ovalocytes 1+
[2022-05-02 12:26] LABS: Poikilocytosis 1+
[2022-05-02 12:33] LABS: Ferritin 14 ng/mL (11-264)
== END ==
PROVIDERS: PCP Student in an Organized Health Care Education/Training Program; Referring Provider Student in an Organized Health Care Education/Training Program; Visit Provider Student in an Organized Health Care Education/Training Program
DX: D50.9 Iron deficiency anemia, unspecified (principal); R31.9 Hematuria, unspecified; E11.9 Type 2 diabetes mellitus without complications
CPT/HCPCS: 36415; 81001; 82728; 83036; 83540; 83550; 83615; 85027; 85045; 87086

== ENCOUNTER → 2022-08-08 14:42 | Outpatient (CLI) | payer OTHER, SELFPAY ==
[2022-08-08 15:16] LABS: Hematocrit 34.7 % (36-46); Hemoglobin 10.9 g/dL (12.0-16.0); Mean Corpuscular HGB Conc 31.5 % (30-36); Mean Corpuscular Hemoglobin 22.7 PG (26-34); Platelet Count 288 X10^3/uL (150-400); Red Blood Cell Count 4.82 X10^6/uL (4.0-5.2); Reticulocyte Count, Percent 0.9 % (1.1-2.6); White Blood Cell Count 9.3 X10^3/uL (4.5-11.0)
[2022-08-08 16:16] LABS: HEMOLYSIS < 15 (0-50); Iron 33 ug/dL (37-170)
[2022-08-08 16:27] LABS: Percent Iron Saturation 11 % (15-50); Total Iron Binding Capacity 294 ug/dL (265-497); Transferrin 216 mg/dL (206-381)
[2022-08-08 16:53] LABS: Ferritin 56 ng/mL (11-264)
== END ==
PROVIDERS: PCP Student in an Organized Health Care Education/Training Program; Referring Provider Student in an Organized Health Care Education/Training Program; Visit Provider Student in an Organized Health Care Education/Training Program
DX: D50.9 Iron deficiency anemia, unspecified (principal)
CPT/HCPCS: 36415; 82728; 83540; 83550; 85027; 85045

== ENCOUNTER → 2022-11-25 12:08 | Outpatient (CLI) | payer OTHER, SELFPAY ==
[2022-11-27 03:29] LABS: x Labcorp Estim. Avg Glu (eAG) 163 mg/dL (.); x Labcorp Hemoglobin A1c 7.3 % (4.8-5.6)
== END ==
PROVIDERS: PCP Student in an Organized Health Care Education/Training Program; Referring Provider Student in an Organized Health Care Education/Training Program; Visit Provider Student in an Organized Health Care Education/Training Program
DX: E11.9 Type 2 diabetes mellitus without complications (principal)
CPT/HCPCS: 36415; 83036

== ENCOUNTER → 2023-04-23 16:22 | Outpatient (CLI) | payer OTHER, SELFPAY ==
--- NOTE | 2023-04-23 16:24 | DI.MG.S_ITS ---
BILATERAL DIGITAL SCREENING MAMMOGRAM 3D/2D WITH CAD: 04/23/2023 CLINICAL: Routine screening. Comparison is made to exams dated: 01/25/2022 mammogram, 03/06/2020 mammogram, and 02/15/2016 mammogram - [facility]. There are scattered areas of fibroglandular density in both breasts (category b / 25%-50% glandular tissue). Current study was also evaluated with a Computer Aided Detection (CAD) system. No significant masses, calcifications, or other findings are seen in either breast. IMPRESSION: NEGATIVE There is no mammographic evidence of malignancy. A 1 year screening mammogram is recommended. Based on the Tyrer Cuzick model (a risk assessment model) the patient's lifetime risk is 6.1% and her 10 year risk is 2.0%. According to the ACR, ACS, and NCCN guidelines, an annual breast MRI exam along with mammogram is recommended if the patient's lifetime risk is 20% or greater. This exam was interpreted at Station ID: [id number]. NOTE: For mammograms, a report in lay terms will be sent to the patient. Approximately 15% of breast malignancies will not be visualized mammographically. In the management of a palpable breast mass, a negative mammogram must not discourage biopsy of a clinically suspicious lesion. Electronically Signed By: Hannah orlando/sen:04/24/2023 08:49:04 letter sent: Normal Exam ACR BI-RADS Category 1: Negative [id number]
== END ==
PROVIDERS: PCP Pediatrics; Referring Provider Pediatrics; Visit Provider Pediatrics
DX: Z12.31 Encounter for screening mammogram for malignant neoplasm of breast (principal)
CPT/HCPCS: 77063; 77067

== ENCOUNTER → 2023-05-04 08:44 | Outpatient (CLI) | payer OTHER, SELFPAY ==
[2023-05-04 10:19] LABS: Hemoglobin A1C% w Est Avg Glu 6.6 % (4.0-6.0)
[2023-05-04 10:51] LABS: Alanine Aminotransferase 19 IU/L (<35); Albumin 3.9 g/dL (3.5-5.0); Albumin Globulin Ratio 1.4 (1.0-2.8); Alkaline Phosphatase 87 U/L (38-126); Aspartate Aminotransferase 20 IU/L (14-36); BUN Creatinine Ratio 28.3 (6-22); Bilirubin Total 0.7 mg/dL (0.2-1.3); Blood Urea Nitrogen 15 mg/dL (7-17); Calcium 9.2 mg/dL (8.4-10.2); Carbon Dioxide 26 mmol/L (22-32); Chloride 104 mmol/L (98-107); Cholesterol 129 mg/dL (140-199); Estimated Glomerular Filt Rate > 60 mL/min (>60); Globulin 2.8 g/dL (1.7-4.1); Glucose 126 mg/dL (70-100); HDL Cholesterol 46 mg/dL (40-60); HEMOLYSIS < 15 (0-50); LDL Cholesterol Calculated 60 mg/dL (<100); Potassium 4.1 mmol/L (3.4-5.1); Sodium 138 mmol/L (137-145); Total Protein 6.7 g/dL (6.3-8.2); Triglycerides 113 mg/dL (35-150)
[2023-05-04 12:30] LABS: Microalbumi Creatinin Ratio Ur 9.6 ug/mg CR (<30); Microalbumin Urine Random 1.7 mg/dL (0-1.6)
== END ==
PROVIDERS: Referring Provider Student in an Organized Health Care Education/Training Program; Visit Provider Student in an Organized Health Care Education/Training Program
DX: E11.9 Type 2 diabetes mellitus without complications (principal); I10 Essential (primary) hypertension; E11.69 Type 2 diabetes mellitus with other specified complication; E78.5 Hyperlipidemia, unspecified
CPT/HCPCS: 36415; 80053; 80061; 82043; 82570; 83036

== ENCOUNTER → 2023-08-13 16:30 | Outpatient (CLI) | payer OTHER, SELFPAY ==
[2023-08-13 17:24] LABS: Add Manual Diff / Slide Review NO; Basophils Absolute Auto 0 /uL (0-100); Basophils Percent Auto 0.5 % (0-2); Eosinophils Absolute Auto 100 /uL (0-450); Eosinophils Percent Auto 1.1 % (2-4); Hematocrit 33.7 % (36-46); Hemoglobin 11.1 g/dL (12.0-16.0); Lymphocytes Absolute Auto 2800 /uL (1100-4500); Lymphocytes Percent Auto 33.9 % (25-40); Mean Corpuscular HGB Conc 32.9 % (30-36); Mean Corpuscular Hemoglobin 24.8 PG (26-34); Mean Corpuscular Volume 75.2 fL (80-100); Monocytes Absolute Auto 400 /uL (0-900); Monocytes Percent Auto 5.3 % (3-14); Neutrophils Absolute Auto 4900 /uL (1500-7000); Neutrophils Percent Auto 59.2 % (50-75); Platelet Count 263 X10^3/uL (150-400); Red Blood Cell Count 4.48 X10^6/uL (4.0-5.2); Red Cell Distribution Width 17.2 % (11.6-14.8); White Blood Cell Count 8.3 X10^3/uL (4.5-11.0)
[2023-08-13 18:06] LABS: Alanine Aminotransferase 16 IU/L (<35); Albumin 4.2 g/dL (3.5-5.0); Albumin Globulin Ratio 1.4 (1.0-2.8); Alkaline Phosphatase 71 U/L (38-126); Aspartate Aminotransferase 19 IU/L (14-36); BUN Creatinine Ratio 25.6 (6-22); Bilirubin Total 1.3 mg/dL (0.2-1.3); Blood Urea Nitrogen 21 mg/dL (7-17); Calcium 10.1 mg/dL (8.4-10.2); Carbon Dioxide 31 mmol/L (22-32); Chloride 98 mmol/L (98-107); Estimated Glomerular Filt Rate > 60 mL/min (>60); Globulin 2.9 g/dL (1.7-4.1); Glucose 104 mg/dL (70-100); HEMOLYSIS < 15 (0-50); Potassium 3.8 mmol/L (3.4-5.1); Sodium 137 mmol/L (137-145); Total Protein 7.1 g/dL (6.3-8.2)
[2023-08-14 10:50] LABS: Hemoglobin A1C% w Est Avg Glu 6.2 % (4.0-6.0)
== END ==
LOC: LAB 16:30
PROVIDERS: PCP Student in an Organized Health Care Education/Training Program; Referring Provider Student in an Organized Health Care Education/Training Program; Visit Provider Student in an Organized Health Care Education/Training Program
DX: E11.69 Type 2 diabetes mellitus with other specified complication (principal); E78.5 Hyperlipidemia, unspecified; I10 Essential (primary) hypertension; E11.9 Type 2 diabetes mellitus without complications
CPT/HCPCS: 36415; 80053; 83036; 85025

== ENCOUNTER 2024-07-29 03:57 | Emergency (ER) | payer OTHER, SELFPAY ==
[2024-07-29 04:09] VITALS: PULSE 88; RESP 22; O2SAT 100
--- NOTE | 2024-07-29 04:09 | ED_ITS ---
HPI - Abdominal Pain General Chief Complaint: Abdominal Pain Stated Complaint: abd pain Time Seen by Provider: 07/29/24 04:08 History of Present Illness HPI narrative: 58-year-old female with two days duration of intermittent right upper quadrant abdominal pain, worse after eating. No history of previous gallbladder problems, but no imaging recalled. Denies history of peptic ulcers, gastritis, pancreatitis, gastroesophageal reflux. No specific treatments tried. No change with position or movement. Last bowel movement earlier today did not bring on any pain, nor relieve any pain. No black or red stools. No nausea or vomiting. No fevers or chills. No dysuria or frequency of urination. No cough shortness of breath or chest pain. No trauma injury or new activities. No antacids or other medications tried. Related Data Previous Rx's Medication Instructions Recorded ondansetron 4 mg disintegrating 4 mg PO Q8H #20 tabs 08/14/23 tablet cholecalciferol (vitamin D3) 25 25 mcg PO DAILY #90 caps 01/11/24 mcg (1,000 unit) capsule ferrous sulfate 325 mg (65 mg 325 mg PO DAILY #90 tabs 01/11/24 iron) tablet (Feosol) atorvastatin 20 mg tablet 20 mg PO BEDTIME #90 tabs 07/14/24 lisinopril 2.5 mg tablet 2.5 mg PO DAILY #90 tabs 07/14/24 metformin 500 mg tablet 500 mg PO BIDWMEAL #120 tabs 07/14/24 tirzepatide 10 mg/0.5 mL 10 mg (0.5 mL) SUBCUT QWEEK #2 mL 07/14/24 subcutaneous pen injector (Mounjaro) Allergies Allergy/AdvReac Type Severity Reaction Status Date / Time ciprofloxacin Allergy Severe HIVES/ Verified 07/29/24 04:21 THROAT SWELLING cephalexin Allergy Intermediate HIVES Verified 07/29/24 04:21 doxycycline Allergy Intermediate HIVES Verified 07/29/24 04:21 Sulfa (Sulfonamide Allergy Mild Rash Verified 07/29/24 06:53 Antibiotics) Penicillins AdvReac Intermediate Hives Verified 07/29/24 06:48 Patient History Medical History (Updated 07/29/24 @ 06:49 by Chang Lopez MD) Obesity, Class III, BMI 40-49.9 (morbid obesity) Myopia, bilateral Hyperlipidemia associated with type 2 diabetes mellitus Tinea versicolor Type 2 diabetes mellitus without complication (03/02/16) Essential hypertension (02/16/16) Surgical History Status post hysterectomy (08/03/16) History of third molar tooth extraction Status post endometrial ablation Family History Father Hypertension Diabetes mellitus Grandmother Diabetes mellitus Grandfather Diabetes mellitus Social History marital status: unknown household members: family and friend(s) occupational status: employed Smoking Status: Never smoker alcohol intake: current substance use type: does not use Smoking Status: Never smoker alcohol intake frequency: holidays/special occasions only Exam Narrative Exam Narrative: GENERAL: Well-developed patient, in mild distress. HEAD: Atraumatic. Normocephalic. EYES: Pupils equal round and reactive. Extraocular motions intact. No scleral icterus. No injection or drainage. ENT: Nose without bleeding, purulent drainage. Throat without erythema, tonsillar hypertrophy or exudate. Airway patent. NECK: Trachea midline. Non tender CARDIOVASCULAR: Regular rate and rhythm without murmurs, gallops, or rubs. RESPIRATORY: Clear to auscultation. Breath sounds equal bilaterally. No wheezes, rales, or rhonchi. GASTROINTESTINAL: Abdomen soft, non-tender, nondistended. No tenderness epigastrium nor right upper quadrant, no skin changes, no vesicles no rash no bruising no cellulitis changes. EXTREMITIES: No edema or joint tenderness. BACK: Nontender without deformity or crepitance. No flank tenderness. NEURO: AOx3. Motor functions grossly nonfocal SKIN: No rash or erythema of visible areas Initial Vital Signs Initial Vital Signs: Vital Signs Pulse Rate 88 07/29/24 04:09 Respiratory Rate 22 07/29/24 04:09 Pulse Oximetry 100 07/29/24 04:09 Course Orders Ordered: ED Orders 07/29/24 04:18 Complete Blood Count AUTO DIFF Stat Comprehensive Metabolic Panel Stat Lipase Stat 07/29/24 04:49 US abdomen limited Stat 07/29/24 06:30 Urine Microscopic Stat 07/29/24 06:32 Urine Culture Stat Discontinued Medications Famotidine (Famotidine 20 Mg/2 Ml Vial) 20 mg IV NOW GIL Last Admin: 07/29/24 05:17 Dose: 20 mg Documented By: HELEN Vital Signs Vital signs: Vital Signs - 8 hr 07/29/24 04:09 07/29/24 04:21 07/29/24 04:30 Temperature 97.8 F Pulse Rate 88 91 H Respiratory Rate 22 19 Blood Pressure 175/81 H 160/76 H Pulse Oximetry 100 100 Oxygen Delivery Method Room Air 07/29/24 04:30 07/29/24 05:00 07/29/24 05:00 Temperature Pulse Rate 88 84 Respiratory Rate 20 19 Blood Pressure 135/70 Pulse Oximetry 99 99 Oxygen Delivery Method Room Air 07/29/24 05:30 07/29/24 05:30 07/29/24 06:00 Temperature Pulse Rate 79 75 Respiratory Rate 15 19 Blood Pressure 140/70 Pulse Oximetry 99 99 Oxygen Delivery Method Room Air 07/29/24 06:00 Temperature Pulse Rate Respiratory Rate Blood Pressure 123/56 L Pulse Oximetry Oxygen Delivery Method MDM - Abdominal Pain Lab Data Attestation: I reviewed the patient's lab results. Lab results narrative: White blood cell count 42792, hemoglobin 12.0, platelets adequate. Basic metabolic panel unremarkable. Liver functions and lipase normal. Urine dip negative. 07/29/24 04:18 07/29/24 04:18 Labs: Lab Results 07/29/24 07/29/24 Range/Units 04:18 06:32 WBC 14.0 H (4.5-11.0) X10^3/uL RBC 4.78 (4.0-5.2) X10^6/uL Hgb 12.0 (12.0-16.0) g/dL Hct 37.3 (36-46) % MCV 78.2 L (80-100) fL MCH 25.1 L (26-34) PG MCHC 32.1 (30-36) % RDW 15.8 H (11.6-14.8) % Plt Count 235 (150-400) X10^3/uL Neut % (Auto) 73.7 (50-75) % Lymph % (Auto) 20.4 L (25-40) % Wilkinson % (Auto) 4.7 (3-14) % Eos % (Auto) 0.7 L (2-4) % Baso % (Auto) 0.5 (0-2) % Neut # (Auto) 50104 H (1355-5380) /uL Lymph # (Auto) 2900 (7058-2163) /uL Wilkinson # (Auto) 700 (0-900) /uL Eos # (Auto) 100 (0-450) /uL Baso # (Auto) 100 (0-100) /uL Sodium 137 (137-145) mmol/L Potassium 3.8 (3.4-5.1) mmol/L Chloride 104 (98-107) mmol/L Carbon Dioxide 29 (22-32) mmol/L BUN 19 H (7-17) mg/dL Creatinine 0.71 (0.52-1.04) mg/dL Estimated GFR > 60 (>60) mL/min BUN/Creatinine Ratio 26.8 H (6-22) Glucose 136 H (70-100) mg/dL Calcium 9.8 (8.4-10.2) mg/dL Total Bilirubin 1.2 (0.2-1.3) mg/dL AST 21 (14-36) IU/L ALT 20 (<35) IU/L Alkaline Phosphatase 94 (38-126) U/L Total Protein 6.8 (6.3-8.2) g/dL Albumin 4.1 (3.5-5.0) g/dL Globulin 2.7 (1.7-4.1) g/dL Albumin/Globulin Ratio 1.5 (1.0-2.8) Lipase 116 (23-300) U/L Urine RBC 1-5/hpf (0-5/HPF) Urine WBC 0-1/hpf (0-5/HPF) Ur Squamous Epith Cells 0-1 /hpf (0-5/HPF) Urine Bacteria None seen (None) Ur Culture Indicated? Specimen cultured Vol Urine Centrifuged 10ml (spun) Point of care testing: Urine Dip Bedside Urine Glucose Negative Bedside Urine Bilirubin - Negative Bedside Urine Ketone - Negative Urine Specific [place] 1.020 Bedside Urine Occult Blood + Bedside Urine pH 6.0 Bedside Urine Protein - Negative Bedside Urine Urobilinogen - Negative Bedside Urine Nitrite - Negative Bedside Urine Leukocytes +/- 15 Esterase MDM Narrative Medical decision making narrative: 58-year-old female with episodic right upper quadrant discomfort worse with food, suspicious for biliary colic. No tenderness on examination. Afebrile, sirs screen negative. Patient would like imaging, ultrasound right upper quadrant abdomen ordered. Labs pending. White blood cell count mildly elevated, LFTs and lipase normal. Urine dip negative. Ultrasound to be performed. Ultrasound sono tech verbal report, gallstone seen, in the fundus, not in the cystic duct, no obvious thickening of the gallbladder wall or pericholecystic fluid. Verbal report, await Radiology reading Ultrasound of the gallbladder. Impression: ?Cholelithiasis without ultrasound findings of cholecystitis. See tele radiology report. In text portion there is mentioned of negative sonographic Garcia's, 3 mm mobile echogenic stone within the gallbladder, no gallbladder wall thickening, no pericholecystic fluid. Common bile duct not dilated. No focal lesions in the liver. Copy of report tele radiology report. Follow up advised for elective cholecystectomy consultation with General surgery as an outpatient for now. Avoid fatty foods. Return precautions discussed. Discharged home with family. Discharge Plan Departure Patient Disposition: Home Clinical Impression: Cholelithiasis Activity Restrictions/Additional Instructions: 2 days duration of intermittent right upper quadrant abdominal discomfort, often after eating food, very suspicious for biliary colic. Ultrasound of the right upper quadrant of the abdomen was done to evaluate the gallbladder. There was indeed a single stone found within the gallbladder. At this time however there is no pericholecystic fluid around the gallbladder, nor any thickening of the gallbladder wall, that would be suggestive of inflamed infected gallbladder at this time. Your gallstone may be a cause of your discomfort however, and symptomatic cholelithiasis (gallstones) can be reason to eventually get your gallbladder out as well. For now try to avoid foods that stimulate the gallbladder such as fatty foods and dairy products. Consider outpatient consultation with surgery regarding elective gallbladder removal (cholecystectomy) surgery, clinic contact information provided for surgeon Dr. Camejo on-call today. Consider calling their office later today during open hours for close follow up consultation. Return earlier to this/nearest emergency department for any change worsening symptoms or any concerns prior Prescriptions: No Action ferrous sulfate [Feosol] 325 mg (65 mg iron) tablet 325 mg PO DAILY Qty: 90 3RF cholecalciferol (vitamin D3) 25 mcg (1,000 unit) capsule 25 mcg PO DAILY Qty: 90 0RF atorvastatin 20 mg tablet 20 mg PO BEDTIME Qty: 90 3RF lisinopril 2.5 mg tablet 2.5 mg PO DAILY Qty: 90 3RF metformin 500 mg tablet 500 mg PO BIDWMEAL Qty: 120 4RF Mounjaro 10 mg/0.5 mL pen injector 10 mg SUBCUT QWEEK Qty: 2 6RF ondansetron 4 mg tablet,disintegrating 4 mg PO Q8H Qty: 20 0RF Referrals: Zack Camejo MD [Physician] - Courtney Le MD [Primary Care Provider] - Stand Alone Forms: Patient Portal/API/Survey
[2024-07-29 04:21] VITALS: BP 175/81; PULSE 91; RESP 19; TEMP 36.6; O2SAT 100; BMI 26.9
[2024-07-29 04:28] LABS: Add Manual Diff / Slide Review NO; Basophils Absolute Auto 100 /uL (0-100); Basophils Percent Auto 0.5 % (0-2); Eosinophils Absolute Auto 100 /uL (0-450); Eosinophils Percent Auto 0.7 % (2-4); Hematocrit 37.3 % (36-46); Lymphocytes Absolute Auto 2900 /uL (1100-4500); Lymphocytes Percent Auto 20.4 % (25-40); Mean Corpuscular HGB Conc 32.1 % (30-36); Mean Corpuscular Hemoglobin 25.1 PG (26-34); Mean Corpuscular Volume 78.2 fL (80-100); Monocytes Absolute Auto 700 /uL (0-900); Monocytes Percent Auto 4.7 % (3-14); Neutrophils Absolute Auto 10300 /uL (1500-7000); Neutrophils Percent Auto 73.7 % (50-75); Platelet Count 235 X10^3/uL (150-400); Red Blood Cell Count 4.78 X10^6/uL (4.0-5.2); Red Cell Distribution Width 15.8 % (11.6-14.8)
[2024-07-29 04:30] VITALS: BP 160/76; PULSE 88; RESP 20; O2SAT 99
[2024-07-29 04:36] LABS: Alanine Aminotransferase 20 IU/L (<35); Albumin 4.1 g/dL (3.5-5.0); Albumin Globulin Ratio 1.5 (1.0-2.8); Alkaline Phosphatase 94 U/L (38-126); Aspartate Aminotransferase 21 IU/L (14-36); BUN Creatinine Ratio 26.8 (6-22); Bilirubin Total 1.2 mg/dL (0.2-1.3); Blood Urea Nitrogen 19 mg/dL (7-17); Calcium 9.8 mg/dL (8.4-10.2); Carbon Dioxide 29 mmol/L (22-32); Chloride 104 mmol/L (98-107); Estimated Glomerular Filt Rate > 60 mL/min (>60); Globulin 2.7 g/dL (1.7-4.1); Glucose 136 mg/dL (70-100); HEMOLYSIS < 15 (0-50); Lipase 116 U/L (23-300); Potassium 3.8 mmol/L (3.4-5.1); Sodium 137 mmol/L (137-145); Total Protein 6.8 g/dL (6.3-8.2)
--- NOTE | 2024-07-29 04:49 | DI.US.S_ITS ---
PROCEDURE: US ABDOMEN LIMITED INDICATIONS: RUQ PAIN; N/V TECHNIQUE: Real-time focused scanning was performed of the abdomen, with image documentation. COMPARISON: None. FINDINGS: Liver measures 17 cm. Cholelithiasis. No sonographic Garcia sign. CBD measures 6 mm which is the upper limit of normal. Pancreas was not well seen due to the overlying bowel gas. IMPRESSION: Cholelithiasis without sonographic Garcia sign. Agree with the preliminary report. Dictated by: Ramirez Molina M.D. on 07/29/2024 at 7:58 Approved by: Ramirez Molina M.D. on 07/29/2024 at 7:59
[2024-07-29 05:00] VITALS: BP 135/70; PULSE 84; RESP 19; O2SAT 99
[2024-07-29] MEDS: FAMOTIDINE 20 MG/2 ML VIAL IV (05:17)
[2024-07-29 05:30] VITALS: BP 140/70; PULSE 79; RESP 15; O2SAT 99
[2024-07-29 06:00] VITALS: BP 123/56; PULSE 75; RESP 19; O2SAT 99
[2024-07-29 07:00] LABS: Urine Volume 10mL (spun)
[2024-07-29 07:01] LABS: Bacteria Urine None Seen; Culture Indicated Urine Specimen Cultured; RBC Urine 1-5/HPF (0-5/HPF); Squamous Epithelial Cell Urine 0-1 /HPF (0-5/HPF); WBC Urine 0-1/HPF (0-5/HPF)
== END 2024-07-29 07:00 | disposition home or self-care (01) ==
PROVIDERS: Emergency Provider Emergency Medicine; PCP Student in an Organized Health Care Education/Training Program
DX: K80.20 Calculus of gallbladder without cholecystitis without obstruction (principal)
CPT/HCPCS: 36415; 76705; 80053; 81003; 81015; 83690; 85025; 87086; 96374; 99284

== ENCOUNTER → 2024-08-16 10:54 | Outpatient (CLI) | payer OTHER, SELFPAY ==
--- NOTE | 2024-08-16 | DI.MG.S_ITS ---
BILATERAL DIGITAL SCREENING MAMMOGRAM 3D/2D WITH CAD: 08/16/2024 CLINICAL: Routine screening. Comparison is made to exams dated: 04/23/2023 mammogram, 01/25/2022 mammogram, and 03/06/2020 mammogram - [facility]. There are scattered areas of fibroglandular density (category b / 25%-50% glandular tissue). Current study was also evaluated with a Computer Aided Detection (CAD) system. There are benign calcifications in both breasts. No significant masses, calcifications, or other findings are seen in either breast. There has been no significant interval change. IMPRESSION: BENIGN There is no mammographic evidence of malignancy. A 1 year screening mammogram is recommended. Based on the Tyrer Cuzick model (a risk assessment model) the patient's lifetime risk is 6.0% and her 10 year risk is 2.1%. According to the ACR, ACS, and NCCN guidelines, an annual breast MRI exam along with mammogram is recommended if the patient's lifetime risk is 20% or greater. This exam was interpreted at Station ID: [id number]. NOTE: For mammograms, a report in lay terms will be sent to the patient. Approximately 15% of breast malignancies will not be visualized mammographically. In the management of a palpable breast mass, a negative mammogram must not discourage biopsy of a clinically suspicious lesion. Electronically Signed By: Karsten alex/sen:08/18/2024 15:35:18 letter sent: Normal Exam ACR BI-RADS Category 2: Benign
[2024-08-16 11:43] LABS: Add Manual Diff / Slide Review NO; Basophils Absolute Auto 0 /uL (0-100); Basophils Percent Auto 0.6 % (0-2); Eosinophils Absolute Auto 100 /uL (0-450); Eosinophils Percent Auto 1.3 % (2-4); Hematocrit 36.4 % (36-46); Hemoglobin 11.9 g/dL (12.0-16.0); Lymphocytes Absolute Auto 3000 /uL (1100-4500); Lymphocytes Percent Auto 41.8 % (25-40); Mean Corpuscular HGB Conc 32.6 % (30-36); Mean Corpuscular Hemoglobin 25.5 PG (26-34); Mean Corpuscular Volume 78.3 fL (80-100); Monocytes Absolute Auto 400 /uL (0-900); Monocytes Percent Auto 5.7 % (3-14); Neutrophils Absolute Auto 3700 /uL (1500-7000); Neutrophils Percent Auto 50.6 % (50-75); Platelet Count 217 X10^3/uL (150-400); Red Blood Cell Count 4.65 X10^6/uL (4.0-5.2); Red Cell Distribution Width 15.9 % (11.6-14.8); White Blood Cell Count 7.2 X10^3/uL (4.5-11.0)
[2024-08-16 11:55] LABS: Hemoglobin A1C% w Est Avg Glu 5.5 % (4.0-6.0)
[2024-08-16 12:08] LABS: Alanine Aminotransferase 20 IU/L (<35); Albumin 4.2 g/dL (3.5-5.0); Albumin Globulin Ratio 1.9 (1.0-2.8); Alkaline Phosphatase 64 U/L (38-126); Aspartate Aminotransferase 20 IU/L (14-36); BUN Creatinine Ratio 22.2 (6-22); Bilirubin Total 1.5 mg/dL (0.2-1.3); Blood Urea Nitrogen 14 mg/dL (7-17); Calcium 9.4 mg/dL (8.4-10.2); Carbon Dioxide 28 mmol/L (22-32); Chloride 102 mmol/L (98-107); Cholesterol 127 mg/dL (140-199); Estimated Glomerular Filt Rate > 60 mL/min (>60); Globulin 2.2 g/dL (1.7-4.1); Glucose 97 mg/dL (70-100); HDL Cholesterol 72 mg/dL (40-60); HEMOLYSIS < 15 (0-50); LDL Cholesterol Calculated 36 mg/dL (<100); Sodium 136 mmol/L (137-145); Total Protein 6.4 g/dL (6.3-8.2); Triglycerides 96 mg/dL (35-150)
[2024-08-16 14:28] LABS: Creatinine Urine Random 194.43 mg/dL
[2024-08-16 14:33] LABS: Microalbumin Urine Random 1.9 mg/dL (0-1.6)
== END ==
PROVIDERS: PCP Student in an Organized Health Care Education/Training Program; Referring Provider Student in an Organized Health Care Education/Training Program; Visit Provider Student in an Organized Health Care Education/Training Program
DX: Z12.31 Encounter for screening mammogram for malignant neoplasm of breast (principal); E11.9 Type 2 diabetes mellitus without complications; I10 Essential (primary) hypertension
CPT/HCPCS: 36415; 77063; 77067; 80053; 80061; 82043; 82570; 83036; 85025

== ENCOUNTER 2024-08-19 08:54 | Day surgery (SDC) | payer OTHER, SELFPAY ==
[2024-08-14 07:16] VITALS: BMI 27.1
[2024-08-19] VITALS (9 sets, daily range): BP systolic 110–151; BP diastolic 74–89; PULSE 73–95; RESP 13–23; TEMP 36.3–37; O2SAT 94–100; BMI 27.1
--- NOTE | 2024-08-19 | PATH_ITS ---
[facility] Accession Number: [id number] No. of containers..01 Tissue . 01 Material submitted: . gallbladder - GALLBLADDER . 01 Diagnosis: GALLBLADDER, CHOLECYSTECTOMY: Mild chronic cholecystitis and reactive changes. Negative for dysplasia and malignancy. MRV 08/22/2024 1344 Local . 01 Electronically signed: . Keerthi Sahni MD, Pathologist NPI- [id number] . 01 Gross description: . Received in formalin with two patient identifiers and gallbladder, is a hernandez and unremarkable gallbladder measuring 6.5 x 3.1 x 1.5 cm with a smooth external surface. The cystic duct margin is inked blue, and no pericystic lymph node is identified. The lumen contains a green to brown, viscous bile with no calculi identified in the lumen or container. The mucosa is brown and velvety without pinpoint yellow discolorations or lesions seen. The gonzalez average 0.3 cm thick. Residential Service Technician sections to include the cystic duct margin and full thickness sections are submitted in A1. ([id number]) /MRV 08/21/2024 1811 Local . 01 Pathologist provided ICD-10: K80.20 . 01 CPT . 790290 Specimen Comment: A courtesy copy of this report has been sent to [phone] Performed at: [address] [facility] [address], [place], [place] [id number] MD Lonnie Seivlla MD Phone: [phone]
[2024-08-19] MEDS: ACETAMINOPHEN 325 MG TABLET 975 MG PO (09:48)
[2024-08-19] MEDS: LACTATED RINGERS 1,000 ML 42 ML IV (09:48)
--- NOTE | 2024-08-19 09:55 | PM.PREOP ---
Pre-operative Note COVID-19 COVID-19 status: Not tested Interval Note History & Physical reviewed/Exam performed by Physician: Yes Changes to H&P: No ASA Class (for procedural sedation): II
[2024-08-19] MEDS: CLINDAMYCIN 900 MG/50 ML PIGGYBACK 50 MG IV (10:25)
--- NOTE | 2024-08-19 10:32 | SUR.OPER ---
Supine on padded OR bed, head on pillow, arms secured on padded arm boards at <90 degrees abduction, legs uncrossed, safety belt at thigh, tape over blanket over lower legs. foot board secured at base of bed with feet flat against it in proper alignment with body
[2024-08-19] MEDS: BUPIVACAINE 0.5% W/ EPI (PF) 30 ML VIAL INJ (10:40)
--- NOTE | 2024-08-19 11:52 | P.OP_ITS ---
Operative Date/Time/Diagnoses Date of procedure: 08/19/24 Time of procedure: 11:52 Pre-op diagnosis: Symptomatic cholelithiasis Post-op diagnosis: same Procedure & Clinicians Procedure: Laparoscopic cholecystectomy Same procedure as scheduled: Yes Surgeon: Zack Camejo Anesthesia Type: General Operative Notes Procedure in detail: The patient was given preoperative antibiotics. The patient was brought to the operating room and placed on the table in the supine position. General endotracheal anesthesia was induced. The abdomen was prepped and draped. A time-out was performed. We made a 1 cm infraumbilical incision. We dissected down to the base of the umbilical stalk using cautery. We grasped the umbilical stalk with a Sara clamp to elevate the abdominal wall. We scored the fascia in the midline with cautery. We pierced the peritoneum with a Peon clamp. The Dallas port was placed and the abdomen was insufflated to 15 mmHg. A 5 mm 30 degree laparoscopic was inserted. There was no evidence of any injury from the entry. There was adhesions of the omentum to the upper midline abdominal wall. Next, we placed 5 mm ports in the subxiphoid position and right upper quadrant at the midclavicular line and anterior axillary line. The patient was then positioned in reverse Trendelenburg and the table was tilted to the left. The gallbladder was grasped at the dome and retracted cephalad. We then dissected the cystic structures with a combination of hook cautery and blunt dissection. We obtained a critical view. We placed clips on the cystic duct and artery and divided the cystic duct and artery sharply between the clips. The gallbladder was then dissected off the liver and placed in a specimen retrieval bag. We irrigated the right upper quadrant and all the aspirate returned clear. We then removed the 5 mm ports under direct vision we removed the Dallas port. We then injected some local into the fascia and closed the fascia with 2 interrupted 0 Vicryl sutures. The skin incisions were closed with 4-0 Monocryl and Steri-Stri ps were applied. Band-Aids were applied over the Steri-Strips. EBL: 20 mL Specimen: Gallbladder and contents Post-operative Condition: stable Disposition: PACU
[2024-08-19] MEDS: ONDANSETRON 4 MG/2 ML INJ IV (12:15)
[2024-08-19] MEDS: fentaNYL 100 MCG/2 ML INJ IV ×2 (12:16→12:21)
[2024-08-19] MEDS: METOCLOPRAMIDE 10 MG/2 ML INJ IV (12:19)
[2024-08-19] MEDS: OXYCODONE IR 5 MG TABLET PO (12:23)
== END 2024-08-19 12:52 | disposition home or self-care (01) ==
PROVIDERS: Surgery; PCP Student in an Organized Health Care Education/Training Program; Referring Provider Surgery; Visit Provider Surgery
PROC: 0FT44ZZ Resection of Gallbladder, Percutaneous Endoscopic Approach (ICD-10-PCS; CPT 47562; principal; 2024-08-19 10:30)
DX: K81.1 Chronic cholecystitis (principal); I10 Essential (primary) hypertension; E78.5 Hyperlipidemia, unspecified; D64.9 Anemia, unspecified; E11.9 Type 2 diabetes mellitus without complications; Z79.84 Long term (current) use of oral hypoglycemic drugs
CPT/HCPCS: 47562; J1100; J1885; J2250; J2405; J2704; J2765; J3010

== ENCOUNTER 2024-10-22 06:52 | Emergency (ER) | payer OTHER, SELFPAY ==
[2024-10-22 06:56] VITALS: BP 195/89
[2024-10-22 06:57] VITALS: PULSE 81; O2SAT 100
[2024-10-22 07:00] VITALS: PULSE 81; O2SAT 100
[2024-10-22 07:01] VITALS: BP 160/68; PULSE 81; O2SAT 100
[2024-10-22 07:02] VITALS: BP 195/89; PULSE 82; RESP 16; TEMP 37.1; O2SAT 99; BMI 27.1
--- NOTE | 2024-10-22 07:11 | ED.WOUNDLAC ---
HPI - Wound/Laceration <Albert Sullivan DO - Last Filed: 10/22/24 07:12> General Chief Complaint: Wound/Laceration Stated Complaint: rt thumb sliced Time Seen by Provider: 10/22/24 07:10 Source: patient Mode of arrival: Ambulatory Related Data Previous Rx's Medication Instructions Recorded ondansetron 4 mg disintegrating 4 mg PO Q8H #20 tabs 08/14/23 tablet cholecalciferol (vitamin D3) 25 25 mcg PO DAILY #90 caps 01/11/24 mcg (1,000 unit) capsule ferrous sulfate 325 mg (65 mg 325 mg PO DAILY #90 tabs 01/11/24 iron) tablet (Feosol) atorvastatin 20 mg tablet 20 mg PO BEDTIME #90 tabs 07/14/24 lisinopril 2.5 mg tablet 2.5 mg PO DAILY #90 tabs 07/14/24 metformin 500 mg tablet 500 mg PO BIDWMEAL #120 tabs 07/14/24 tirzepatide 10 mg/0.5 mL 10 mg (0.5 mL) SUBCUT QWEEK #2 mL 07/14/24 subcutaneous pen injector (Mounjaro) Allergies Allergy/AdvReac Type Severity Reaction Status Date / Time ciprofloxacin Allergy Severe HIVES/ Verified 10/11/24 12:48 THROAT SWELLING cephalexin Allergy Intermediate HIVES Verified 10/11/24 12:48 doxycycline Allergy Intermediate HIVES Verified 10/11/24 12:48 Sulfa (Sulfonamide Allergy Mild Rash Verified 10/11/24 12:48 Antibiotics) Penicillins AdvReac Intermediate Hives Verified 10/11/24 12:48 <Melba Aguilera DO - Last Filed: 10/22/24 07:34> History of Present Illness HPI narrative: Dr. Sullivan did not see or evaluate this patient. Dr. Aguilera- Patient is a 59-year-old healthy female history of hypertension hyperlipidemia presenting today with right thumb laceration. She reports it last night she cut her right thumb on of food can. She was not on antiplatelet or anticoagulation medication. Reports that she put a dressing on it last night but then took it off this morning to take a shower no still oozing. Reports her tetanus was in 2019 she was offered another tetanus now. Patient History <Albert Sullivan DO - Last Filed: 10/22/24 07:12> Medical History Anemia Obesity, Class III, BMI 40-49.9 (morbid obesity) Myopia, bilateral Hyperlipidemia associated with type 2 diabetes mellitus Tinea versicolor Type 2 diabetes mellitus without complication (03/02/16) Essential hypertension (02/16/16) Surgical History Status post hysterectomy (08/03/16) History of third molar tooth extraction Status post endometrial ablation Family History Father Hypertension Diabetes mellitus Grandmother Diabetes mellitus Grandfather Diabetes mellitus Social History marital status: unknown household members: spouse occupational status: employed Smoking Status: Never smoker alcohol intake: current substance use type: does not use Smoking Status: Never smoker alcohol intake frequency: holidays/special occasions only Exam <Albert Sullivan DO - Last Filed: 10/22/24 07:12> Initial Vital Signs Initial Vital Signs: Vital Signs Temperature 98.7 F 10/22/24 07:02 Pulse Rate 82 10/22/24 07:02 Respiratory Rate 16 10/22/24 07:02 Blood Pressure 195/89 H 10/22/24 07:02 Pulse Oximetry 99 10/22/24 07:02 Oxygen Delivery Method Room Air 10/22/24 07:02 <Melba Aguilera DO - Last Filed: 10/22/24 07:34> Initial Vital Signs Initial Vital Signs: Vital Signs Temperature 98.7 F 10/22/24 07:02 Pulse Rate 82 10/22/24 07:02 Respiratory Rate 16 10/22/24 07:02 Blood Pressure 195/89 H 10/22/24 07:02 Pulse Oximetry 99 10/22/24 07:02 Oxygen Delivery Method Room Air 10/22/24 07:02 GENERAL: Well-appearing, well-nourished and in no acute distress. CARDIOVASCULAR: peripheral pulses in tact, cap refill <2 sec RESPIRATORY: No respiratory distress, speaks in full sentences without difficulty EXTREMITIES: Normal range of motion, no clubbing or edema. Neurovascularly intact NEUROLOGICAL: Cranial nerves II through XII grossly intact. Normal gait and speech. SKIN: Right thumb 0.25cm flap lateral thigh no nail bed involvement no no significant bleeding at this time Course <Albert Sullivan, DO - Last Filed: 10/22/24 07:12> Vital Signs Vital signs: Vital Signs - 8 hr 10/22/24 07:02 Temperature 98.7 F Pulse Rate 82 Respiratory Rate 16 Blood Pressure 195/89 H Pulse Oximetry 99 Oxygen Delivery Method Room Air <Melba Aguilera DO - Last Filed: 10/22/24 07:34> Vital Signs Vital signs: Vital Signs - 8 hr 10/22/24 07:02 Temperature 98.7 F Pulse Rate 82 Respiratory Rate 16 Blood Pressure 195/89 H Pulse Oximetry 99 Oxygen Delivery Method Room Air MDM - Wound/Laceration <Melba Aguilera, - Last Filed: 10/22/24 07:34> MDM Narrative Medical decision making narrative: Patient healthy 59-year-old female who presenting today with right thumb laceration. Laceration slightly oozing but no significant bleeding very small. Surgicel 2 gauze dressing placed no need for suture or repair Offered tetanus. Discharge Plan Departure Patient Disposition: Home Clinical Impression: Laceration of right thumb Instructions: DI for Minor Laceration Activity Restrictions/Additional Instructions: *You have been diagnosed with right thumb laceration *What to do: At this time please keep dressing on for the next 12-24 hours it should stop. May apply pressure and ice *Continue to take medications as directed *Follow up with your primary care provider in 2-3 days or call [phone] *Return to ER if you should have any new, worsening or concerning symptoms Prescriptions: No Action ferrous sulfate [Feosol] 325 mg (65 mg iron) tablet 325 mg PO DAILY Qty: 90 3RF cholecalciferol (vitamin D3) 25 mcg (1,000 unit) capsule 25 mcg PO DAILY Qty: 90 0RF atorvastatin 20 mg tablet 20 mg PO BEDTIME Qty: 90 3RF lisinopril 2.5 mg tablet 2.5 mg PO DAILY Qty: 90 3RF metformin 500 mg tablet 500 mg PO BIDWMEAL Qty: 120 4RF Rx Instructions: With breakfast and dinner. Mounjaro 10 mg/0.5 mL pen injector 10 mg SUBCUT QWEEK Qty: 2 6RF Patient Comments: Instructed to hold until after surgery 08/19/24. ondansetron 4 mg tablet,disintegrating 4 mg PO Q8H Qty: 20 0RF Referrals: Courtney Le MD [Primary Care Provider] - Stand Alone Forms: Patient Portal/API/Survey, Work Release Note
[2024-10-22 07:30] VITALS: BP 147/86; PULSE 75; O2SAT 98
== END 2024-10-22 07:50 | disposition home or self-care (01) ==
PROVIDERS: Emergency Provider Emergency Medicine; PCP Student in an Organized Health Care Education/Training Program
DX: S61.011A Laceration without foreign body of right thumb without damage to nail, initial encounter (principal); W26.8XXA Contact with other sharp object(s), not elsewhere classified, initial encounter
CPT/HCPCS: 99282; 99283